=== PATIENT | male | born 1955 | race Caucasian/White ===

== ENCOUNTER 2020-12-23 10:44 | Emergency (ER) | payer BC, MEDICARE, SELFPAY ==
[2020-12-23 10:54] VITALS: BP 146/84; PULSE 81; RESP 18; TEMP 36.3; O2SAT 95
--- NOTE | 2020-12-23 11:05 | ED.SKABFB ---
HPI - Skin/Abscess/Foreign Bdy General Chief complaint: Skin/Abscess/Foreign Body Stated complaint: rt hand ring finger pos infection Time Seen by Provider: 12/23/20 11:05 Source: patient and RN notes reviewed Mode of arrival: ambulatory Limitations: no limitations History of Present Illness HPI narrative: 65-year-old male presents to the [facility] with complaints of pain swelling to the right ring finger around the nailbed. Patient states a week ago he cut his nails and since redness inflammation and drainage has been noted. Related Data Home Medications Medication Instructions Recorded Confirmed lisinopril 10 mg PO DAILY 12/23/20 12/23/20 metoprolol tartrate 25 mg PO DAILY 12/23/20 12/23/20 prednisone 7 mg PO DAILY 12/23/20 12/23/20 rosuvastatin 40 mg PO DAILY 12/23/20 12/23/20 Allergies Allergy/AdvReac Type Severity Reaction Status Date / Time No Known Allergies Allergy Verified 12/23/20 11:04 Review of Systems Review of Systems: All systems reviewed & are unremarkable except as noted in HPI and below Constitutional: Constitutional: Reports no additional constitutional complaints Eyes: Eyes: Reports no additional eye complaints ENT: Reports system reviewed and no additional complaints, except as documented Cardiovascular: Cardiovascular: Reports no additional cardiovascular complaints Respiratory: Respiratory: Reports no additional respiratory complaints Gastrointestinal: Gastrointestinal: Reports no additional gastrointestinal complaints Musculoskeletal: Musculoskeletal: Reports no additional musculoskeletal complaints Integumentary/Breasts: Skin/Breast: Reports as per HPI Comments: Right ring finger redness swelling post 6 days trimming nails Neurologic: Reports system reviewed and no additional complaints, except as documented Psychiatric: Psychiatric: Reports no additional psychiatric complaints Allergic/Immunologic: Allergic/Immunologic: Reports no additional allergic/immunologic complaints [facility] Past Medical History Medical History (Updated 12/23/20 @ 18:28 by Gisella Hogan) High cholesterol Hypertension Social History Social History (Updated 12/23/20 @ 18:28 by Gisella Hogan) Living arrangements: with family Gender identity (if verbalized by the patient): Male Comments At the time of my signature, I reviewed and agree with the nursing past medical, surgical, social, and family history. There is no relevant family history pertinent to the patient complaint. Exam Const: General: healthy appearing, no acute distress and alert Nutritional Appearance: well nourished Orientation/consciousness: patient oriented x3 Limitations: no limitations HENMT: Head: normal to inspection Eyes: Conjunctivae: conjunctivae normal Pupils: Equal, round and reactive pupils present Neck: Neck: normal visual inspection, no lymphadenopathy and no meningeal signs Chest: Chest palpation & inspection: normal inspection of the chest Resp: Effort & Inspection: normal respiratory effort and no use of accessory muscles Auscultation: clear to auscultation bilaterally, no crackles, no rales, no rhonchi and no wheezes Cardio: Rate: regular rate Rhythm: regular rhythm Back/Spine/Pelvis: Back: no CVA tenderness Skin: General skin exam: normal color Rashes: no rashes Wounds: wounds noted (Paronychia right ring finger) Neuro: General: patient oriented x3, moves all extremities, no meningeal signs and no focal motor deficits Speech: normal speech Gait exam (Neuro): Normal gait present Extrem: General: normal to inspection Psych: Appearance: grossly normal and well kempt Mental Status: mental status grossly normal Affect: normal affect Attitude: cooperative Thought content: Yes Normal thought content present Course Course Emergency Course: Discharge instructions reviewed with patient, as well as provided in writing per nursing staff. The instructions also include specific and strict return/
[2020-12-23] MEDS: LIDOCAINE HCL 1% LOCAL INJ 20 ML VIAL 5 ML INFILTRATE (11:33)
== END 2020-12-23 11:48 | disposition home or self-care (01) ==
PROVIDERS: Emergency Provider Nurse Practitioner; PCP Family Medicine Adolescent Medicine
DX: L03.011 Cellulitis of right finger (principal); E78.00 Pure hypercholesterolemia, unspecified; I10 Essential (primary) hypertension
CPT/HCPCS: 10060; 87070; 87075; 87076; 87147; 87185; 87205; 99213; G0463

== ENCOUNTER 2021-01-29 09:36 | Outpatient (CLI) | payer BC, MEDICARE, SELFPAY ==
--- NOTE | ~2021-01-29 | XR_ITS ---
EXAMINATION: XR lumbar spine 2-3V EXAM DATE: 01/29/2021 10:15 INDICATION: Polymyalgia rheumatica. TECHNIQUE: Lumber spine frontal, lateral, lateral L5-S1 projections for interpretation. There is no prior study for comparison. FINDINGS: There is moderate disc disease L4-5 and L5-S1, mild to moderate disc disease at the other lumbar levels. There is moderate lower lumbar facet arthropathy. No endplate erosive change. The sacr oiliac joints are symmetric and unremarkable. Mild bilateral hip primary osteoarthritis. Paraspinal s oft tissue is unremarkable. IMPRESSION: Moderate lower lumbar spondylosis. Reviewed, dictated and finalized at location A. L BEARING TURNER
--- NOTE | ~2021-01-29 | XR_ITS ---
EXAMINATION: XR hip BI 2V w AP pelvis DATE: 01/29/2021 10:15 INDICATION: Polymyalgia rheumatica. Pelvic pain. TECHNIQUE: An anteroposterior view of the pelvis and 2 views of each hip were obtained. COMPARISON: None. FINDINGS: Bone alignment is normal. No fracture. There is severe lumbar spondylosis. There is mild os teoarthritis of the hips. IMPRESSION: 1. Mild osteoarthritis of the hips. 2. Severe lumbar spondylosis. Reviewed, dictated and finalized at location B. STION OPERATOR
--- NOTE | ~2021-01-29 | XR_ITS ---
EXAMINATION: XR sacroiliac joints min 3V DATE: 01/29/2021 10:15 INDICATION: Polymyalgia rheumatica. TECHNIQUE: 3 views of the sacroiliac joints were obtained. COMPARISON: None. FINDINGS: Bone alignment is normal. No fracture. There is severe lumbar spondylosis. The sacroiliac j oints are normal. IMPRESSION: 1. Normal sacroiliac joints. 2. Severe lumbar spondylosis. Reviewed, dictated and finalized at location B. TER PROFESSIONAL
== END 2021-01-29 09:37 | disposition home or self-care (01) ==
LOC: ANHIMG 09:45
PROVIDERS: PCP Family Medicine Adolescent Medicine
DX: M35.3 Polymyalgia rheumatica (principal); M25.50 Pain in unspecified joint; E55.9 Vitamin D deficiency, unspecified; M81.0 Age-related osteoporosis without current pathological fracture; M16.0 Bilateral primary osteoarthritis of hip; M47.896 Other spondylosis, lumbar region
CPT/HCPCS: 72100; 72202; 73521

== ENCOUNTER 2021-08-03 11:31 | Outpatient (CLI) | payer MEDICARE, SELFPAY ==
--- NOTE | ~2021-08-03 | DEXA_ITS ---
Bone Density Report Name: DANIELLE EID Age: 65 Sex: Male Ethnicity: White Date of : 1955 Indication: osteopenia; history of glucocorticoids; Referring Provider: ALIRIO NAYAK Study: Bone densitometry was performed. Exam Date: August 03, 2021 Accession number: [id number] Bone Density: Region BMD T-score Z-score Classification AP Spine(L1-L4) 0.891 -1.8 -1.0 Osteopenia Femoral Neck (Left) 0.906 -0.2 0.9 Normal Total Hip (Left) 0.953 -0.5 0.0 Normal Femoral Neck (Right) 0.903 -0.2 0.9 Normal Total Hip (Right) 1.034 0.0 0.5 Normal Total Hip Mean 0.993 -0.3 0.3 Normal World Health Organization criteria for BMD impression classify patients as: Normal (T-score at or above -1.0), Osteopenia (T-score between -1.0 and -2.5), or Osteoporosis (T-score at or below -2.5). 10-year Fracture Risk(1): Major Osteoporotic Fracture 5.7% Hip Fracture 0.6% Reported Risk Factors: [place] (), Neck BMD=0.906, BMI=38.4, smoking, glucocorticoids Input outside FRAX(R) limits. Adjusted to:Ugnitx=560 kg (1) FRAX(R) Version 3.08. Fracture probability calculated for an untreated patient. Fracture probability may be lower if the patient has received treatment. Previous Exams: Region Exam Age BMD T-score BMD Change BMD Change Date g/cm2 vs Baseline vs Previous AP Spine (L1-L4) 08/03/2021 65 0.891 -1.8 -0.071 (-7.4%) -0.071 (-7.4%) 01/19/2018 62 0.962 -1.2 Total Hip(Left) 08/03/2021 65 0.953 -0.5 -0.062 (-6.1%) -0.062 (-6.1%) 01/19/2018 62 1.015 -0.1 Total Hip(Right) 08/03/2021 65 1.034 0.0 0.047 (4.8%)* 0.047 (4.8%)* 01/19/2018 62 0.987 -0.3 *Denotes significance at 95% confidence level, LSC for AP Spine = 0.022 g/cm2, LSC for Total Hip = 0.027 g/cm2 # Denotes dissimilar scan types or analysis methods Clinical Information Provided by Patient: Smokes Has taken Glucocorticoids Has used the following medications: Vitamin D Patient maximum height was 72 No regular weight bearing exercise Drinks caffeinated beverages Impression: The patient has low bone mass, based on the Total Spine T-score. The patient has an estimated ten-year risk of hip fracture of 0.6% and an estimated ten-year risk of major fracture of 5.7%, based on the WHO FRAX algorithm. The patient has risk factors, including: smoking, history of glucocorticoid therapy. The BMD for the Total Hip(Left) decreased, changing by -6.1% since the last DXA exa
== END 2021-08-03 11:32 | disposition home or self-care (01) ==
LOC: ANHIMG 11:32
PROVIDERS: PCP Family Medicine Adolescent Medicine
DX: M35.3 Polymyalgia rheumatica (principal); M25.50 Pain in unspecified joint; E55.9 Vitamin D deficiency, unspecified; M81.0 Age-related osteoporosis without current pathological fracture; M85.88 Other specified disorders of bone density and structure, other site
CPT/HCPCS: 77080

== ENCOUNTER 2021-11-07 08:56 | Outpatient (CLI) | payer MEDICARE, SELFPAY ==
--- NOTE | ~2021-11-07 | US_ITS ---
EXAMINATION: US aorta [facility] scrn DATE: 11/07/2021 09:41 INDICATION: Abdominal aortic aneurysm screening. TECHNIQUE: Grayscale, color Doppler, and pulsed Doppler images of the aorta and common iliac arteries were obtained. COMPARISON: None. FINDINGS: The aorta is normal in caliber. The right common iliac artery is obscured by bowel gas. The left comm on iliac artery is obscured by bowel gas. IMPRESSION: 1. No abdominal aortic aneurysm. Reviewed, dictated and finalized at location A.
== END 2021-11-07 08:57 | disposition home or self-care (01) ==
PROVIDERS: PCP Family Medicine Adolescent Medicine; Visit Provider Internal Medicine Cardiovascular Disease
DX: Z72.0 Tobacco use (principal)
CPT/HCPCS: 76706

== ENCOUNTER 2021-12-28 08:14 | Emergency (ER) | payer MEDICARE, SELFPAY ==
[2021-12-28] VITALS (11 sets, daily range): BP systolic 108–117; BP diastolic 57–70; PULSE 74–90; RESP 18–25; TEMP 36.6; O2SAT 92–99
--- NOTE | ~2021-12-28 | XR_ITS ---
EXAMINATION: XR chest 2V DATE: 12/28/2021 09:05 INDICATION: Cardiac arrest TECHNIQUE: PA and lateral views of the chest are obtained. COMPARISON: 03/12/2016 FINDINGS: The lungs are free of acute opacities. No pleural effusion or pneumothorax. The cardiomedia stinal silhouette is normal. There is mild thoracic spondylosis. IMPRESSION: 1. No acute cardiopulmonary abnormality. Reviewed, dictated and finalized at location A.
--- NOTE | 2021-12-28 08:32 | ECG_ITS ---
Measurements Intervals [place] Rate: 81 P: 8 DC: 146 QRS: -50 QRSD: 106 T: 33 QT: 342 QTc: 399 Interpretive Statements SINUS RHYTHM LEFT ANTERIOR FASCICULAR BLOCK [QRS AXIS <= -45, QR IN I, RS IN II] NO PREVIOUS ECG AVAILABLE FOR COMPARISON Electronically Signed On 12-28-2021 9:04:22 CDT by Amanda Ballard M.D.
[2021-12-28 08:59] LABS: Basophils Absolute Auto 0.1 K/mm3 (0.0-0.1); Basophils Percent Auto 0.4 % (0.2-1.2); Eosinophils Absolute Auto 0.2 K/mm3 (0-0.3); Eosinophils Percent Auto 1.6 % (0-4.4); Hematocrit 44.2 % (42.0-52.0); Hemoglobin 14.7 g/dL (14.0-18.0); Immature Granulocyte Absolute 0.07 K/mm3 (0.00-0.031); Immature Granulocyte Percent A 0.5 % (0-0.5); Lymphocytes Absolute Auto 2.69 K/mm3 (0.9-3.2); Lymphocytes Percent Auto 20.1 % (18.3-44.2); Mean Corpuscular HGB Conc 33.3 g/dl (32-36); Mean Corpuscular Hemoglobin 31.6 pg (26-34); Mean Corpuscular Volume 95.1 fl (80-100); Mean Platelet Volume 10.2 fl (7.4-10.4); Monocytes Absolute Auto 1.1 K/mm3 (0.1-0.6); Monocytes Percent Auto 8.1 % (2.6-8.5); Neutrophils Absolute Auto 9.3 K/mm3 (1.3-6.7); Neutrophils Percent Auto 69.3 % (45.5-73.1); Platelet Count Result 196 k/mm3 (150-375); Red Blood Count 4.65 M/mm3 (4.6-6.20); Red Cell Distribution Width 13.5 % (11.5-14.5); White Blood Count 13.4 K/mm3 (4.5-10.0)
--- NOTE | 2021-12-28 09:00 | ED.GENADULT ---
HPI - General Adult General Chief complaint: Unspecified Stated complaint: I had a Heart Attack Yesterday Time Seen by Provider: 12/28/21 08:36 History of Present Illness HPI narrative: Patient is a 66-year-old male with a history of CAD with MO status post stenting (2016), hypertension, hyperlipidemia, polymyalgia rheumatica, here for evaluation of an episode of chest discomfort yesterday. Patient states that he was seated eating dinner when he noticed that he became diaphoretic, cold, and nauseated. He reports similar symptoms with his previous MO, so he took a nitro with slight improvement of his symptoms. Patient began to trip to the ER and he then developed a tightness in the center of his chest that lasted for about an hour and a half. Patient left the ER yesterday due to long wait times; presents today due to continued fatigue and feeling off . He denies any shortness of breath, chest pain today. Related Data Home Medications Medication Instructions Recorded Confirmed metoprolol tartrate 25 mg tablet 25 mg PO DAILY 12/23/20 11/13/21 prednisone 1 mg tablet 7 mg PO DAILY 12/23/20 11/13/21 rosuvastatin 40 mg tablet 40 mg PO DAILY 12/23/20 11/13/21 furosemide 20 mg tablet 10 mg PO QAM 11/13/21 11/13/21 lisinopril 10 mg tablet 20 mg PO DAILY 11/13/21 11/13/21 Allergies Allergy/AdvReac Type Severity Reaction Status Date / Time No Known Allergies Allergy Verified 11/13/21 08:32 Review of Systems Review of Systems: Gen.: Reports diaphoresis. Denies fevers or chills Eyes: Denies eye pain or visual change ENT: Denies congestion Respiratory: Denies shortness of breath or cough CV: Reports chest pain, resolved. Denies palpitations GI: Reports nausea. Denies abdominal pain nausea, emesis or diarrhea denies burning, urgency, frequency or hematuria Musculoskeletal: Denies back pain or muscle pain Neuro: Denies numbness, tingling, weakness or focal weakness Skin: Denies rash Except as documented, all other systems reviewed and negative [facility] Past Medical History Medical History High cholesterol Hx of myocardial infarction Hypertension Surgical History Surgical History Hx of laminectomy L4 AND L5 Family History Family History Mother Alzheimers disease Arrhythmia Father Acute myocardial infarction CAD (coronary artery disease) Sibling , Heart attack at 53 No problems noted. Social History Social History (Updated 11/13/21 @ 08:38 by Naomie Parsons MA) Smoking status: Current some day smoker Tobacco type: cigarettes Second hand tobacco smoke exposure: Yes Alcohol intake: never Substance use: never Substance use type: does not use Gender identity (if verbalized by the patient): Male Spiritual care concerns: No Agree to blood products: Yes Exam Narrative: APPEARANCE: Obese. Well appearing, no pain in distress, well-nourished. Head: Normocephalic and atraumatic. EYES: PERRLA/EOMI, conjunctivae clear NOSE: No nasal drainage EARS: External ear normal in appearance THROAT: Oropharynx is clear. Mucous membranes are moist. NECK: Supple. No adenopathy, no masses. RESPIRATORY: Airway patent, respirations nonlabored. Clear to auscultation bilaterally, no rales, rhonchi, wheezing. CARDIOVASCULAR: Regular rate and rhythm without murmurs, rubs, or gallops. ABDOMINAL: Normoactive bowel sounds. Soft, nontender, nondistended. No rebound tenderness or guarding. MUSCULOSKELETAL: 1+ pitting edema to bilateral lower extremities. Extremities are warm and well-perfused. Moves all extremities well. NEURO: Normal speech. No focal neurologic deficits. SKIN: Skin is warm and dry. No rashes. PSYCHIATRIC: Normal affect/mood. Course Consultations Consultation #1: Spoke with
[2021-12-28 09:09] LABS: Alanine Aminotransferase 26 U/L (6-50); Albumin Level 4.2 g/dL (3.5-5.1); Alkaline Phosphatase 65 U/L (38-126); Anion Gap 12 mmol/L (8-16); Aspartate Amino Transferase 29 U/L (17-59); Bilirubin,Total 0.4 mg/dL (0.2-1.3); Blood Urea Nitrogen 29 mg/dL (9-20); Calcium 8.6 mg/dL (8.4-10.2); Carbon Dioxide 30 mmol/L (22-30); Chloride 97 mmol/L (98-107); Estimated CRCL calculation 109 ml/min; Estimated Glomerular Filt Rate > 60; Glucose 135 mg/dL (65-110); Lipase 117 U/L (23-300); Potassium 3.9 mmol/L (3.4-5.0); Sodium 139 mmol/L (137-145)
[2021-12-28 09:10] LABS: INR 1.1; Prothrombin Time 13.6 Seconds (11.1-14.7)
[2021-12-28 09:11] LABS: Partial Thromboplastin Time 25.9 SECONDS (22.3-36.8)
[2021-12-28 09:20] LABS: Troponin I < 0.012 ng/mL (0.000-0.034)
[2021-12-28] MEDS: ASPIRIN 81 MG CHEWABLE TABLET 324 MG PO (09:48)
== END 2021-12-28 10:28 | disposition home or self-care (01) ==
PROVIDERS: Emergency Provider Emergency Medicine; PCP Family Medicine Adolescent Medicine
DX: I25.10 Atherosclerotic heart disease of native coronary artery without angina pectoris (principal); I25.2 Old myocardial infarction; E78.5 Hyperlipidemia, unspecified; I10 Essential (primary) hypertension; M35.3 Polymyalgia rheumatica; Z95.5 Presence of coronary angioplasty implant and graft; F17.210 Nicotine dependence, cigarettes, uncomplicated; I44.4 Left anterior fascicular block
CPT/HCPCS: 36415; 71046; 80053; 83690; 84484; 85025; 85610; 85730; 93005; 99284; A9270

== ENCOUNTER 2022-01-23 01:09 | Day surgery (SDC) | payer MEDICARE, SELFPAY ==
[2022-01-22 10:45] VITALS: BMI 38.7
[2022-01-23] VITALS (10 sets, daily range): BP systolic 125–153; BP diastolic 72–85; PULSE 78–90; RESP 16–28; TEMP 35.7; O2SAT 92–95; BMI 37.9
[2022-01-23 09:16] LABS: Basophils Absolute Auto 0.1 K/mm3 (0.0-0.1); Basophils Percent Auto 0.5 % (0.2-1.2); Eosinophils Absolute Auto 0.3 K/mm3 (0-0.3); Eosinophils Percent Auto 1.9 % (0-4.4); Hematocrit 46.7 % (42.0-52.0); Hemoglobin 15.4 g/dL (14.0-18.0); Immature Granulocyte Absolute 0.12 K/mm3 (0.00-0.031); Immature Granulocyte Percent A 0.8 % (0-0.5); Lymphocytes Absolute Auto 3.17 K/mm3 (0.9-3.2); Lymphocytes Percent Auto 20.1 % (18.3-44.2); Mean Corpuscular Hemoglobin 31.2 pg (26-34); Mean Corpuscular Volume 94.7 fl (80-100); Mean Platelet Volume 9.8 fl (7.4-10.4); Monocytes Absolute Auto 1.2 K/mm3 (0.1-0.6); Monocytes Percent Auto 7.5 % (2.6-8.5); Neutrophils Absolute Auto 10.9 K/mm3 (1.3-6.7); Neutrophils Percent Auto 69.2 % (45.5-73.1); Platelet Count Result 215 k/mm3 (150-375); Red Blood Count 4.93 M/mm3 (4.6-6.20); Red Cell Distribution Width 13.1 % (11.5-14.5); White Blood Count 15.8 K/mm3 (4.5-10.0)
[2022-01-23 09:25] LABS: Anion Gap 12 mmol/L (8-16); Blood Urea Nitrogen 23 mg/dL (9-20); Calcium 9.1 mg/dL (8.4-10.2); Carbon Dioxide 28 mmol/L (22-30); Chloride 96 mmol/L (98-107); Estimated CRCL calculation 109 ml/min; Estimated Glomerular Filt Rate > 60; Glucose 137 mg/dL (65-110); Potassium 3.9 mmol/L (3.4-5.0); Sodium 136 mmol/L (137-145)
--- NOTE | 2022-01-23 09:25 | PM.IMHP ---
H&P: HPI History of Present Illness Date/Time: 01/23/22 09:25 Chief Complaint: Patient presents for cardiac cath for abnormal stress test Narrative: Patient is a 66-year-old male with a known history of CAD s/p multiple stents in 2017, polymyalgia rheumatica on chronic prednisone therapy who is referred for cardiac cath for abnormal stress test. He had PCI with KRISTYN of 3.5mm x 38mm to the RCA in March 13, 2016. He then had PCI with stent placement to the LCX with a 3.0mm x 32mm KRISTYN and then KRISTYN to the LAD with a 3.0mm x 23mm and a 3.0mm x 12mm on March 27, 2016. Patient was recently seen in the ED for chest pain. Troponins were negative without ischemic EKG changes. He was discharged from ED. Patient had an outpatient MPI on 01/09/2022 which showed inferior/inferoseptal infarction with ischemia. LVEF 74%. Negative EKG portion of stress test. Very poor exercise capacity for age with limiting dyspnea. Review of Systems Review of Systems: 12-point ROS obtained. Negative, unless stated in HPI. [facility] Past Medical History Medical History High cholesterol Hx of myocardial infarction Hypertension Surgical History Surgical History Hx of laminectomy L4 AND L5 Family History Family History Mother Alzheimers disease Arrhythmia Father Acute myocardial infarction CAD (coronary artery disease) Sibling , Heart attack at 53 No problems noted. Social History Social History Smoking packs per day: 0.5 Smoking cigarettes per day: 10.0 Years smoked: 50 Smoking pack-years: 25.00 Smoking status: Current every day smoker Tobacco type: cigarettes Second hand tobacco smoke exposure: Yes Alcohol intake: former Substance use: current Substance use type: does not use Living arrangements: with family Gender identity (if verbalized by the patient): Male Spiritual care concerns: No Agree to blood products: Yes Meds Home Medications and Allergies Home Medications Medication Instructions Recorded Confirmed Type metoprolol tartrate 25 mg tablet 25 mg PO BID 12/23/20 01/22/22 History prednisone 1 mg tablet 8 mg PO DAILY 12/23/20 01/22/22 History rosuvastatin 40 mg tablet 40 mg PO DAILY 12/23/20 01/22/22 History furosemide 20 mg tablet 10 mg PO QAM PRN Edema 11/13/21 01/22/22 History lisinopril 10 mg tablet 20 mg PO DAILY 11/13/21 01/22/22 History aspirin 81 mg tablet 81 mg PO DAILY 01/22/22 01/22/22 History hydrochlorothiazide 25 mg tablet 25 mg PO DAILY 01/22/22 01/22/22 History Allergies Allergy/AdvReac Type Severity Reaction Status Date / Time No Known Allergies Allergy Verified 01/23/22 08:29 Vital Signs Vital Signs - 24 hr 01/23/22 09:04 Temperature 35.7 C L Pulse Rate 88 Respiratory Rate 22 H Blood Pressure 132/82 Pulse Oximetry 94 Oxygen Delivery Room Air Exam Const: General: comfortable and no acute distress HENMT: Mouth: Yes moist mucous membranes Eyes: General: appearance normal, both eyes and all related structures Sclera: sclerae normal Neck: Neck: supple and no JVD Resp: Effort & Inspection: normal respiratory effort Auscultation: clear to auscultation bilaterally Cardio: Rate: regular rate Rhythm: regular rhythm Heart sounds: no murmurs GI: GI Palp: Yes Soft to palpation and No Tenderness to palpation present (GI) Skin: General skin exam: normal color Neuro: Speech: normal speech Extrem: General: no edema Psych: Mental Status: mental status grossly normal Affect: normal affect H&P: Results Labs Labs: Short CBC 01/23/22 Range/Units 09:00 WBC 15.8 H (4.5-10.0) K/mm3 Hgb 15.4 (14.0-18.0) g/dL Hct 46.7 (42.0-52.0) % Plt Count 215 (150-375) k/mm3 Assessment and Plan Assessmen
--- NOTE | 2022-01-23 09:32 | WPDMODSED ---
Moderate Sedation Note-Pt Data Patient Data Diagnosis: Abnormal stress test Present Complaint: Abnormal stress test Procedure to be performed/Plan: Coronary angiography, C Allergies Allergy/AdvReac Type Severity Reaction Status Date / Time No Known Allergies Allergy Verified 01/23/22 08:29 Home Medications Medication Instructions Recorded Confirmed Type metoprolol tartrate 25 mg tablet 25 mg PO BID 12/23/20 01/22/22 History prednisone 1 mg tablet 8 mg PO DAILY 12/23/20 01/22/22 History rosuvastatin 40 mg tablet 40 mg PO DAILY 12/23/20 01/22/22 History furosemide 20 mg tablet 10 mg PO QAM PRN Edema 11/13/21 01/22/22 History lisinopril 10 mg tablet 20 mg PO DAILY 11/13/21 01/22/22 History aspirin 81 mg tablet 81 mg PO DAILY 01/22/22 01/22/22 History hydrochlorothiazide 25 mg tablet 25 mg PO DAILY 01/22/22 01/22/22 History Current Medications: Active Medications Sodium Chloride (Normal Saline Iv) 500 mls @ 100 mls/hr IV CONT .Q5H MICKY Sedation/Anesthesia: No previous sedation/anesthesia problems (including family history). [facility] Past Medical History Medical History High cholesterol Hx of myocardial infarction Hypertension Surgical History Surgical History Hx of laminectomy L4 AND L5 Family History Family History Mother Alzheimers disease Arrhythmia Father Acute myocardial infarction CAD (coronary artery disease) Sibling , Heart attack at 53 No problems noted. Social History Social History Smoking packs per day: 0.5 Smoking cigarettes per day: 10.0 Years smoked: 50 Smoking pack-years: 25.00 Smoking status: Current every day smoker Tobacco type: cigarettes Second hand tobacco smoke exposure: Yes Alcohol intake: former Substance use: current Substance use type: does not use Living arrangements: with family Gender identity (if verbalized by the patient): Male Spiritual care concerns: No Agree to blood products: Yes Mod Sed Physical Exam Physical Exam Pre Procedural Exam: Normal: Appearance, Lungs, Heart Rate, Heart Rhythm, Neuro Exam, Abdomen, Extremities and Skin Hours since solid foods: 12 Hours since liquid intake: 8 Mallampati Classification: class III Internal Medicine - PN: Obj Da Vital Signs Vital Signs: Vital Signs - 24 hr 01/23/22 09:04 Temperature 35.7 C L Pulse Rate 88 Respiratory Rate 22 H Blood Pressure 132/82 Pulse Oximetry 94 Oxygen Delivery Room Air Meds/Results Medications: Active Medications Generic Name Dose Route Start Last Admin Trade Name Alondra PRN Reason Stop Dose Admin Sodium Chloride 500 mls @ 100 mls/hr 01/23/22 08:30 Normal Saline Iv IV CONT .Q5H MICKY Labs CBC & Chem 7: 01/23/22 09:00 01/23/22 09:00 Labs: Laboratory Results - last 24 hr 01/23/22 01/23/22 09:00 09:00 WBC 15.8 H RBC 4.93 Hgb 15.4 Hct 46.7 MCV 94.7 MCH 31.2 MCHC 33.0 RDW 13.1 Plt Count 215 MPV 9.8 Immature Gran % (Auto) 0.8 H Neut % (Auto) 69.2 Lymph % (Auto) 20.1 [place] % (Auto) 7.5 Eos % (Auto) 1.9 Baso % (Auto) 0.5 Lymph # (Auto) 3.17 [place] # (Auto) 1.2 H Eos # (Auto) 0.3 Baso # (Auto) 0.1 Abs Immat Gran (auto) 0.12 H Absolute Neuts (auto) 10.9 H Absolute Nucleated RBC 0.0 Nucleated RBC % 0.0 Sodium 136 L Potassium 3.9 Chloride 96 L Carbon Dioxide 28 Anion Gap 12 BUN 23 H Creatinine 0.80 Estim Creat Clear Calc 109 Estimated GFR > 60 Glucose 137 H Calcium 9.1 ASA Classification/Sedation ASA Classification/Sedation ASA Class: III Emergent: No Risks: Risks, benefits and alternatives explained and patient/family accepted plan for sedation. Patient re-vandana
--- NOTE | 2022-01-23 10:51 | WPDCARDPROC ---
Cardiac Cath Procedure Note Date of procedure:: 01/23/22 Performing physician:: CATHETERIZATION LABORATORY REPORT Procedure Date: 01/23/2022 Customs Patrol Officer: Elliot Hunt M.D., [facility]? Referring Physician: Dr. Reis ? Anesthesia: Versed and Fentanyl were ordered and given in my presence at 10:13, procedure ended at 10:45. Supervision of nurse monitored moderate sedation with Versed and Fentanyl was provided for 33 minutes. Total of Versed 2mg and Fentanyl 50mcg was administered by the Heel Blacker RN. Pre-op Diagnosis: Abnormal stress test in the setting of known CAD s/p prior PCI Post-op Diagnosis: Non-obstructive coronary artery disease with patent LAD, OM, and RCA stents Left ventricular end-diastolic pressure of 22mmHg Procedure(s): Left heart catheterization with coronary angiography Access Site: Right radial artery Brief History and Clinical Indications: Patient is a 66-year-old male with a known history of CAD s/p prior RCA, LAD, and LCX stents in 2017 who is referred for [facility] for abnormal stress test in the setting of chest pain. All risks, benefits and alternatives to left heart catheterization with or without percutaneous coronary intervention was discussed at length with the patient. Risk of complications including but not limited to bleeding, infection, arrhythmia, stroke, worsening kidney function, blood loss, groin hematoma, limb loss, emergency coronary artery bypass grafting, and even were discussed with the patient and all questions were answered. The patient understood and wished to proceed. Time out called, patient name, date of , medical record number, allergies, procedure performed, identify Customs Patrol Officer, patient and staff member concurred with accurate data, procedure carried on. Findings: LEFT HEART CATHETERIZATION FINDINGS: 1. Left main: The left main coronary artery is widely patent without any significant obstructive disease. The left main is short. 2. Left anterior descending: The proximal LAD has mild luminal irregularities. Patent stent in the mid LAD. The distal LAD has mild diffuse disease. No significant obstructive angiographic disease in the LAD Diagonal branches have mild diffuse disease without any significant obstructive angiographic disease. 3. Left circumflex: The left circumflex artery has mild diffuse disease without any significant obstructive angiographic disease. There is a large caliber OM vessel with a patent stent in the proximal-mid segments. Remainder of the OM branch has mild luminal irregularities. 4. Right coronary artery: The RCA is the dominant vessel. Patent stent seen in the proximal-mid segment. The distal RCA has mild diffuse disease without any significant obstructive angiographic disease. RPDA and RPLV branches are without any significant disease. 5. Left ventricle: A. End-diastolic pressure 22mmHg. B. LV gram deferred. C. No significant gradient across aortic valve on catheter pullback. Description of Procedure: Informed consent signed and placed in the chart. Patient transferred to lab instructor room. Prepped and draped in usual sterile fashion. 2% lidocaine injected subcutaneously in right wrist area. 22-gauge venipuncture catheter used to access the right radial artery with the Seldinger technique. 6-FR slender sheath placed in right radial artery. Nitroglycerine and Cardene was given intraarterial through the sheath. Versacore wire advanced under fluoroscopy 5F Tig 4 diagnostic catheter engaged Left Main Coronary Artery. 5F Tig 4 diagnostic catheter engaged Right Coronary Artery Additional left coronary angios were obtained with FL 4 diagnostic catheter. Multiple orthogonal angiogram obtained and reviewed 5F Tig 4 diagnostic catheter crossed aortic valve to obtain LVEDP, LV angiogram deferred. Hemostasis was achieved by application of TR band. ? Assessment: Non-obstructive coronary artery disease with patent LAD, OM, and RCA stents Left ventr
== END 2022-01-23 13:56 | disposition home or self-care (01) ==
PROVIDERS: PCP Family Medicine Adolescent Medicine; Visit Provider Internal Medicine
PROC: 4A023N7 Measurement of Cardiac Sampling and Pressure, Left Heart, Percutaneous Approach (ICD-10-PCS; CPT 93452; principal; 2022-01-23 10:00)
DX: I25.10 Atherosclerotic heart disease of native coronary artery without angina pectoris (principal); R94.39 Abnormal result of other cardiovascular function study; R07.9 Chest pain, unspecified; Z95.5 Presence of coronary angioplasty implant and graft; M35.3 Polymyalgia rheumatica; E78.00 Pure hypercholesterolemia, unspecified; I25.2 Old myocardial infarction; I10 Essential (primary) hypertension; F17.210 Nicotine dependence, cigarettes, uncomplicated; Z79.82 Long term (current) use of aspirin
CPT/HCPCS: 36415; 80048; 85025; 93458; A9270; C1769; C1887; C1894; J1644; J2250; J3010; J7040

== ENCOUNTER 2022-07-18 08:18 | Outpatient (CLI) | payer MEDICARE, SELFPAY ==
--- NOTE | 2022-07-18 12:52 | P.PCNPFT_ITS ---
PFT Procedure Performed PFT Procedure Performed Spirometry with Pre/Post Bronchodilator Plethysmography (Lung Vol) Diffusing Cap (DLCO) Flow Vol Loop PFT Interpretation This is a pulmonary function test with pre and post-bronchodilator spirometry, plethysmography and diffusing capacity. The test was performed and results interpreted in accordance with the 2019 and 2005 ATS/ERS Task Force guidelines respectively using the Global Lung Function Initiative-2012 reference equations. Patient demonstrated good effort and cooperation. Reproducibility criteria were met. The quality of the pre bronchodilator spirometry maneuver was Grade A and post bronchodilator spirometry maneuver was Grade A. Findings: Spirometry: There is decreased maximal expiratory airflow at all lung volumes with a concave expiratory flow tracing. The contour the inspiratory flow tracing is normal. The pre bronchodilator FVC is 2.65 L, 56% predicted. The pre bronchodilator FEV1 is 1.73 L, 48% predicted. The pre bronchodilator FEV1: FVC ratio is 65%. The post bronchodilator FVC is 2.94 L, representing a 11% increase. The post bronchodilator FEV1 is 1.99 L, representing a 15% increase. The post bronchodilator FEV1: FVC ratio 68%. Plethysmography: The total lung capacity is 5.46 L, 73% predicted. The functio nal residual capacity is 3.08 L, 78% predicted. the residual volume is 2.78 L, 112% predicted. Diffusing capacity: The diffusing capacity unadjusted for hemoglobin and carboxyhemoglobin is 15.2, 55% predicted. The diffusing capacity adjusted for alveolar volume is 3.60, 91% predicted. Impression: There is a combined obstructive and restrictive ventilatory abnormality. There are no guidelines to assign the severity of obstruction and restriction with a combined abnormality. In my opinion, given the moderately concave expiratory flow tracing and decreased FEV1: FVC ratio and mild restr ictive abnormality I would state there is a moderate obstructive abnormality and a mild restrictive abnormality resulting in a severely decreased FEV1. There is significant improvement after inhaling a single dose of albuterol. The diffusing capacity unadjusted for hemoglobin and carboxyhemoglobin is moderately decreased and normalizes when adjusted for alveolar volume. There are no prior studies for comparison
== END 2022-07-18 08:19 | disposition home or self-care (01) ==
PROVIDERS: PCP Family Medicine Adolescent Medicine; Visit Provider Family Medicine Adolescent Medicine
DX: R06.02 Shortness of breath (principal); R94.2 Abnormal results of pulmonary function studies
CPT/HCPCS: 94060; 94726; 94729

== ENCOUNTER 2022-09-28 22:01 | Emergency (ER) | payer MEDICARE, SELFPAY ==
--- NOTE | ~2022-09-28 | XR_ITS ---
XR chest 2V 09/28/2022 22:27 Indication: Shortness of breath with chest pain Procedure: 2 view chest Comparison: 2021 Findings: Chronic infiltrates of the lung bases. Borderline heart size. No edema, significant effusio n or pneumothorax. No acute osseous abnormality. Impression: 1: No significant change to chronic bibasilar linear infiltrates, most likely atelectasis/scarring. Reviewed, dictated and finalized at location A. Impression: 1: No significant change to chronic bibasilar linear infiltrates, most likely a telectasis/scarring.
--- NOTE | 2022-09-28 22:03 | ECG_ITS ---
Measurements Intervals [place] Rate: 113 P: 45 NV: 147 QRS: -53 QRSD: 100 T: 67 QT: 297 QTc: 408 Interpretive Statements SINUS TACHYCARDIA INCOMPLETE RIGHT BUNDLE BRANCH BLOCK LEFT ANTERIOR FASCICULAR BLOCK CONSIDER ANTERIOR INFARCT, AGE INDETERMINATE ABNORMAL ECG COMPARED TO ECG 12/28/2021 08:28:16 SINUS TACHYCARDIA NOW PRESENT Electronically Signed On 09-29-2022 6:48:16 CDT by Soto Meng D.O.
[2022-09-28 22:04] VITALS: BP 197/95; PULSE 121; RESP 20; TEMP 36.1; O2SAT 99
[2022-09-28 22:18] LABS: Basophils Absolute Auto 0.1 K/mm3 (0.0-0.1); Basophils Percent Auto 0.4 % (0.2-1.2); Eosinophils Absolute Auto 0.3 K/mm3 (0-0.3); Eosinophils Percent Auto 1.8 % (0-4.4); Hematocrit 44.2 % (42.0-52.0); Hemoglobin 14.3 g/dL (14.0-18.0); Immature Granulocyte Absolute 0.11 K/mm3 (0.00-0.031); Immature Granulocyte Percent A 0.6 % (0-0.5); Mean Corpuscular HGB Conc 32.4 g/dl (32-36); Mean Corpuscular Volume 95.7 fl (80-100); Mean Platelet Volume 10.1 fl (7.4-10.4); Monocytes Absolute Auto 1.6 K/mm3 (0.1-0.6); Neutrophils Absolute Auto 11.2 K/mm3 (1.3-6.7); Neutrophils Percent Auto 64.2 % (45.5-73.1); Platelet Count Result 222 k/mm3 (150-375); Red Blood Count 4.62 M/mm3 (4.6-6.20); Red Cell Distribution Width 13.2 % (11.5-14.5); White Blood Count 17.5 K/mm3 (4.5-10.0)
[2022-09-28 22:30] LABS: Alanine Aminotransferase 49 U/L (6-50); Albumin Level 4.4 g/dL (3.5-5.1); Alkaline Phosphatase 98 U/L (38-126); Anion Gap 7 mmol/L (8-16); Aspartate Amino Transferase 44 U/L (17-59); Bilirubin,Total 0.3 mg/dL (0.2-1.3); Blood Urea Nitrogen 23 mg/dL (9-20); Calcium 9.1 mg/dL (8.4-10.2); Carbon Dioxide 33 mmol/L (22-30); Chloride 97 mmol/L (98-107); Estimated CRCL calculation 93 ml/min; Estimated Glomerular Filt Rate > 60; Glucose 150 mg/dL (65-110); Potassium 3.9 mmol/L (3.4-5.0); Sodium 137 mmol/L (137-145)
[2022-09-28 23:35] VITALS: PULSE 90
[2022-09-28 23:36] VITALS: PULSE 91; RESP 20; O2SAT 93
[2022-09-28 23:47] VITALS: BP 138/77; PULSE 85; RESP 22; O2SAT 94
[2022-09-28 23:50] VITALS: PULSE 85; RESP 23; O2SAT 94
[2022-09-29] VITALS (10 sets, daily range): BP systolic 122–140; BP diastolic 80; PULSE 78–104; RESP 17–25; O2SAT 91–97
--- NOTE | 2022-09-29 00:56 | PC.NURSE ---
Patient ambulated without delivery assistant with marketing writer while he is on the pulse ox. Patient started on stretcher with oxygen saturations of 92% on room air and maintained oxygen saturations between 91-93% while walking around the nurses station. Patient did appear short of breath but was able to talk in full and complete sentences while ambulating with marketing writer. Patient ended his walk by sitting back on the ED stretcher in room 6 with oxygen saturations of 92% on room air.
--- NOTE | 2022-09-29 01:06 | ED.SOB ---
HPI - SOB/Dyspnea General Chief Complaint: Shortness of Breath/Dyspnea Stated Complaint: SOB; COPD/asthma Time Seen by Provider: 09/28/22 23:51 Source: patient and old records reviewed Mode of arrival: ambulatory Limitations: no limitations History of Present Illness HPI Narrative: Patient is a 66-year-old male, with past medical history of COPD/asthma, who presents to the ED with report of shortness of breath. Patient reports he was sitting at home tonight and began feeling lightheaded and dizzy. He checked his oxygen level with his home pulse oximeter and it was noted to be low at 88%. He states his HR was also elevated into the 120s at that time. Patient reports having chronic shortness of breath, but states it has seemed more pronounced over the last couple of days. He then prompted to the ED. Oxygen was 99% on room air upon arrival. Patient states pulmonology here and is scheduled to have a 6-minute walking test on Thursday to determine if he needs home oxygen therapy. He is also scheduled to receive a CT scan of the chest. Patient does not currently use oxygen. He reports having a cough over the last 4 days, denies fever. Denies chest pain. Denies lower extremity pain or swelling. Denies nausea or vomiting. Related Data Home Medications Medication Instructions Recorded Confirmed metoprolol tartrate 25 mg tablet 25 mg PO BID 12/23/20 09/11/22 prednisone 1 mg tablet 8 mg PO DAILY 12/23/20 09/11/22 rosuvastatin 40 mg tablet 40 mg PO DAILY 12/23/20 09/11/22 furosemide 20 mg tablet 10 mg PO QAM PRN Edema 11/13/21 09/11/22 lisinopril 10 mg tablet 20 mg PO DAILY 11/13/21 09/11/22 hydrochlorothiazide 25 mg tablet 25 mg PO DAILY 01/22/22 09/11/22 cholecalciferol (vitamin D3) 1,250 1,250 mcg PO WEEKLY 09/11/22 09/11/22 mcg (50,000 unit) capsule Allergies Allergy/AdvReac Type Severity Reaction Status Date / Time No Known Allergies Allergy Verified 09/28/22 22:02 Review of Systems Review of Systems: CONSTITUTIONAL: Denies fever, chills, or sweats. ENT: Denies rhinorrhea, congestion, sore throat, or otalgia. CARDIOVASCULAR: See HPI. RESPIRATORY: See HPI. GASTROINTESTINAL: Denies abdominal pain, nausea, vomiting, or diarrhea. NEUROLOGIC: See HPI. All systems reviewed & are unremarkable except as noted in HPI and below PMFSH Past Medical History Medical History Asthma-COPD overlap syndrome High cholesterol Hx of myocardial infarction Hyperlipidemia Hypertension Obstructive sleep apnea (adult) (pediatric) (2019) Polymyalgia rheumatica Surgical History Surgical History Hx of laminectomy L4 AND L5 Family History Family History Mother Alzheimers disease Arrhythmia Father Acute myocardial infarction CAD (coronary artery disease) Sibling , Heart attack at 53 No problems noted. Social History Social History Years smoked: 50 Smoking status: Former smoker Tobacco type: cigarettes Second hand tobacco smoke exposure: Yes Smoking end date: 02/08/22 Alcohol intake: former Substance use: current Substance use type: does not use Living arrangements: with family Occupation/Education: retired Gender identity (if verbalized by the patient): Male Spiritual care concerns: No Agree to blood products: Yes Exam Narrative: GENERAL: Well appearing, morbidly obese with BMI of 42, non-toxic, in no acute distress. HEAD: Normocephalic, atraumatic. NECK: Supple. No adenopathy, no masses. RESPIRATORY: Airway patent, respirations nonlabored. Slight crackles in left lung base. No other significant focal lung sounds. No wheezing. CARDIOVASCULAR: Regular rate and rhythm without murmurs, rubs, or gallops. Peripheral puls
[2022-09-29 01:17] LABS: NT Pro B Type Natriuretic Pept < 20 pg/mL (19.9-100); Troponin I < 0.012 ng/mL (0.000-0.034)
[2022-09-29 01:29] LABS: Troponin I < 0.012 ng/mL (0.000-0.034)
[2022-09-29 02:23] LABS: D Dimer 0.41 ug/mL (<0.48)
== END 2022-09-29 02:46 | disposition left against medical advice (07) ==
PROVIDERS: Preventive Medicine Aerospace Medicine; Emergency Provider Physician Assistant; PCP Family Medicine Adolescent Medicine
DX: J18.9 Pneumonia, unspecified organism (principal); D72.829 Elevated white blood cell count, unspecified; J44.9 Chronic obstructive pulmonary disease, unspecified; I25.2 Old myocardial infarction; I10 Essential (primary) hypertension; E78.00 Pure hypercholesterolemia, unspecified; E78.5 Hyperlipidemia, unspecified; M35.3 Polymyalgia rheumatica; G47.33 Obstructive sleep apnea (adult) (pediatric); Z87.891 Personal history of nicotine dependence; R00.0 Tachycardia, unspecified; I45.2 Bifascicular block
CPT/HCPCS: 36415; 71046; 80053; 83880; 84484; 85025; 85380; 93005; 99284

== ENCOUNTER 2022-10-01 12:24 | Outpatient (CLI) | payer MEDICARE, SELFPAY ==
[2022-10-01 13:00] VITALS: PULSE 95; O2SAT 92
[2022-10-01 13:05] VITALS: PULSE 123; O2SAT 85
[2022-10-01 13:10] VITALS: PULSE 121; O2SAT 87
[2022-10-01 13:15] VITALS: PULSE 120; O2SAT 90
[2022-10-01 13:30] VITALS: PULSE 96; O2SAT 91
--- NOTE | 2022-10-01 13:36 | HOMEO2EVAL ---
Evaluation was performed at [facility] Home Oxygen Evaluation RC: Home Oxygen (O2) Evaluation Start: 10/01/22 13:34 Freq: Status: Active Protocol: RPE Activity Type Activity Date Activity User E-sign Co-sign Detail Recorded Client Recorded Date Recorded By Document 10/01/22 13:00 [email or web address] [email or web address] 10/01/22 13:36 DJO Document 10/01/22 13:05 [email or web address] [email or web address] 10/01/22 13:36 DJO Document 10/01/22 13:10 [email or web address] [email or web address] 10/01/22 13:36 DJO Document 10/01/22 13:15 [email or web address] [email or web address] 10/01/22 13:36 DJO Document 10/01/22 13:30 [email or web address] [email or web address] 10/01/22 13:36 DJO 10/01/22 10/01/22 10/01/22 13:00 13:05 13:10 Home O2 Evaluation [Oxygen] -Test Phase Resting Exercise Exercise -Oxygen Delivery Room Air Room Air Nasal Cannula -Oxygen Flow Rate (L/min) 1 [Pulse Oximetry] -Pulse Oximetry (90-100 %) 92 85 L 87 L [Pulse Rate] -Pulse Rate (60-100 beats/min) 95 123 H 121 H [Evaluation] -Activity Tolerance [Charges] -Treatment Charges O2 Evaluation - Outpatient 10/01/22 10/01/22 13:15 13:30 Home O2 Evaluation [Oxygen] -Test Phase Exercise Resting -Oxygen Delivery Nasal Cannula Room Air -Oxygen Flow Rate (L/min) 2 [Pulse Oximetry] -Pulse Oximetry (90-100 %) 90 91 [Pulse Rate] -Pulse Rate (60-100 beats/min) 120 H 96 [Evaluation] -Activity Tolerance Good [Charges] -Treatment Charges
== END 2022-10-01 12:25 | disposition home or self-care (01) ==
PROVIDERS: PCP Family Medicine Adolescent Medicine; Visit Provider Physician Assistant
DX: J44.9 Chronic obstructive pulmonary disease, unspecified (principal)
CPT/HCPCS: 94618

== ENCOUNTER 2022-10-01 12:27 | Outpatient (CLI) | payer MEDICARE, SELFPAY ==
--- NOTE | ~2022-10-01 | CT_ITS ---
EXAMINATION: CT diagnostic chest wo con DATE: 10/01/2022 13:32 INDICATION: Chronic obstructive pulmonary disease TECHNIQUE: Computed tomography (CT) of the chest was performed without intravenous contrast. The dose -length product was 901.56 mGy-cm. Automated exposure control and iterative reconstruction technique were employed. COMPARISON: Chest x-ray dated 09/28/2022 FINDINGS: No significant pleural or pericardial effusion. Nonenlarged mediastinal lymph nodes, likely reactive. There is atherosclerosis of the aorta and coronary arteries. Heart size is normal. Atrophi c thyroid gland. Fatty infiltration of the liver. There are bilateral renal cysts, partially visualiz ed. Fatty infiltration of the liver. The spleen, pancreas and adrenal glands are grossly unremarkable . No endobronchial lesions. There are coarse linear infiltrates of the lower lobes and right middle lob e. No suspicious pulmonary nodules or masses. Mild emphysema. No endobronchial lesions. IMPRESSION: 1. Coarse linear bibasilar infiltrates, most likely atelectasis/scarring. Reviewed, dictated and finalized at location A.
== END 2022-10-01 12:28 | disposition home or self-care (01) ==
PROVIDERS: PCP Family Medicine Adolescent Medicine; Visit Provider Physician Assistant
DX: J44.9 Chronic obstructive pulmonary disease, unspecified (principal); Z87.891 Personal history of nicotine dependence
CPT/HCPCS: 71250; 94618

== ENCOUNTER 2022-12-12 12:36 | Outpatient (CLI) | payer MEDICARE, SELFPAY ==
[2022-12-12 12:35] VITALS: PULSE 89; O2SAT 92
[2022-12-12 12:40] VITALS: PULSE 114; O2SAT 85
[2022-12-12 12:45] VITALS: PULSE 115; O2SAT 87
[2022-12-12 12:50] VITALS: PULSE 106; O2SAT 90
[2022-12-12 13:10] VITALS: PULSE 90; O2SAT 92
--- NOTE | 2022-12-12 13:13 | HOMEO2EVAL ---
Evaluation was performed at [facility] Home Oxygen Evaluation RC: Home Oxygen (O2) Evaluation Start: 12/12/22 13:08 Freq: Status: Active Protocol: RPE Activity Type Activity Date Activity User E-sign Co-sign Detail Recorded Client Recorded Date Recorded By Document 12/12/22 12:35 PK [email or web address] 12/12/22 13:13 PKH Document 12/12/22 12:40 [email or web address] 12/12/22 13:13 PKH Document 12/12/22 12:45 PK [email or web address] 12/12/22 13:13 PK Document 12/12/22 12:50 PK [email or web address] 12/12/22 13:13 PK Document 12/12/22 13:10 PK [email or web address] 12/12/22 13:13 PK 12/12/22 12/12/22 12/12/22 12:35 12:40 12:45 Home O2 Evaluation [Oxygen] -Test Phase Resting Exercise Exercise -Oxygen Delivery Room Air Room Air Nasal Cannula -Oxygen Flow Rate (L/min) 1 [Pulse Oximetry] -Pulse Oximetry (90-100 %) 92 85 L 87 L [Pulse Rate] -Pulse Rate (60-100 beats/min) 89 114 H 115 H [Charges] -Treatment Charges O2 Evaluation - Outpatient 12/12/22 12/12/22 12:50 13:10 Home O2 Evaluation [Oxygen] -Test Phase Exercise Resting -Oxygen Delivery Nasal Cannula Room Air -Oxygen Flow Rate (L/min) 2 [Pulse Oximetry] -Pulse Oximetry (90-100 %) 90 92 [Pulse Rate] -Pulse Rate (60-100 beats/min) 106 H 90 [Charges] -Treatment Charges
== END 2022-12-12 12:37 | disposition home or self-care (01) ==
PROVIDERS: PCP Family Medicine Adolescent Medicine; Visit Provider Physician Assistant
DX: J96.11 Chronic respiratory failure with hypoxia (principal); Z99.81 Dependence on supplemental oxygen; J44.9 Chronic obstructive pulmonary disease, unspecified
CPT/HCPCS: 94618

== ENCOUNTER 2023-03-18 09:12 | Outpatient (CLI) | payer MEDICARE, SELFPAY ==
[2023-03-18] VITALS (7 sets, daily range): PULSE 93–118; O2SAT 87–92
--- NOTE | 2023-03-18 10:08 | HOMEO2EVAL ---
Addendum entered by Smita Banda, METAL BENDING MACHINE OPERATOR 03/18/23 12:01: Disregard note. See 1158 note for updated version. Original Note: Evaluation was performed at [facility] Home Oxygen Evaluation RC: Home Oxygen (O2) Evaluation Start: 03/18/23 10:03 Freq: Status: Active Protocol: RPE Activity Type Activity Date Activity User E-sign Co-sign Detail Recorded Client Recorded Date Recorded By Document 03/18/23 09:25 [email or web address] [email or web address] 03/18/23 10:08 PKH Document 03/18/23 09:30 [email or web address] [email or web address] 03/18/23 10:08 PKH Document 03/18/23 09:35 [email or web address] [email or web address] 03/18/23 10:08 PKH Document 03/18/23 09:45 [email or web address] [email or web address] 03/18/23 10:08 PKH Document 03/18/23 10:00 [email or web address] [email or web address] 03/18/23 10:08 PKH Document 03/18/23 10:05 [email or web address] [email or web address] 03/18/23 10:08 PKH 03/18/23 03/18/23 03/18/23 09:25 09:30 09:35 Home O2 Evaluation [Oxygen] -Test Phase Resting Resting Resting -Oxygen Delivery Room Air Nasal Cannula Nasal Cannula -Oxygen Flow Rate (L/min) 1 2 [Pulse Oximetry] -Pulse Oximetry (90-100 %) 87 L 87 L 91 [Pulse Rate] -Pulse Rate (60-100 beats/min) 96 118 H 110 H [Charges] -Evaluation Charges O2 Evaluation by Pulmonary 03/18/23 03/18/23 03/18/23 09:45 10:00 10:05 Home O2 Evaluation [Oxygen] -Test Phase Exercise Exercise Resting -Oxygen Delivery Nasal Cannula Nasal Cannula Nasal Cannula -Oxygen Flow Rate (L/min) 2 3 2 [Pulse Oximetry] -Pulse Oximetry (90-100 %) 87 L 90 91 [Pulse Rate] -Pulse Rate (60-100 beats/min) 110 H 111 H 93 [Charges] -Evaluation Charges
--- NOTE | 2023-03-18 11:58 | HOMEO2EVAL ---
Evaluation was performed at [facility] Home Oxygen Evaluation RC: Home Oxygen (O2) Evaluation Start: 03/18/23 10:03 Freq: Status: Active Protocol: RPE Activity Type Activity Date Activity User E-sign Co-sign Detail Recorded Client Recorded Date Recorded By Document 03/18/23 09:25 [email or web address] [email or web address] 03/18/23 11:58 KLA Document 03/18/23 09:30 [email or web address] [email or web address] 03/18/23 11:58 KLA Document 03/18/23 09:35 [email or web address] [email or web address] 03/18/23 11:58 KLA Document 03/18/23 09:45 PK [email or web address] 03/18/23 11:58 KLA Document 03/18/23 09:50 PKH [email or web address] 03/18/23 11:58 KLA Document 03/18/23 10:00 PK [email or web address] 03/18/23 11:58 KLA Document 03/18/23 10:05 [email or web address] [email or web address] 03/18/23 11:58 KLA 03/18/23 03/18/23 03/18/23 09:25 09:30 09:35 Home O2 Evaluation [Oxygen] -Test Phase Resting Resting Resting -Oxygen Delivery Room Air Nasal Cannula Nasal Cannula -Oxygen Flow Rate (L/min) 1 2 [Pulse Oximetry] -Pulse Oximetry (90-100 %) 87 L 87 L 91 [Pulse Rate] -Pulse Rate (60-100 beats/min) 96 118 H 110 H [Exercise] -Ambulation Distance (feet) -Ambulation Distance (meters) [Charges] -Evaluation Charges 03/18/23 03/18/23 03/18/23 09:45 09:50 10:00 Home O2 Evaluation [Oxygen] -Test Phase Exercise Exercise Exercise -Oxygen Delivery Nasal Cannula Nasal Cannula Nasal Cannula -Oxygen Flow Rate (L/min) 2 3 3 [Pulse Oximetry] -Pulse Oximetry (90-100 %) 87 L 90 92 [Pulse Rate] -Pulse Rate (60-100 beats/min) 110 H 110 H 111 H [Exercise] -Ambulation Distance (feet) -Ambulation Distance (meters) [Charges] -Evaluation Charges 03/18/23 10:05 Home O2 Evaluation [Oxygen] -Test Phase Resting -Oxygen Delivery Nasal Cannula -Oxygen Flow Rate (L/min) 2 [Pulse Oximetry] -Pulse Oximetry (90-100 %) 91 [Pulse Rate] -Pulse Rate (60-100 beats/min) 93 [Exercise] -Ambulation Distance (feet) 1,000 -Ambulation Distance (meters) 304.78 [Charges] -Evaluation Charges O2 Evaluation by Pulmonary
== END 2023-03-18 09:13 | disposition home or self-care (01) ==
LOC: ANHPFT 09:14
PROVIDERS: PCP Family Medicine Adolescent Medicine; Visit Provider Physician Assistant
DX: J44.9 Chronic obstructive pulmonary disease, unspecified (principal); J96.11 Chronic respiratory failure with hypoxia; Z99.81 Dependence on supplemental oxygen
CPT/HCPCS: 94618

== ENCOUNTER 2023-05-25 15:00 | Outpatient (RCR) | payer MEDICARE, SELFPAY | END 2023-06-01 14:31 | disposition home or self-care (01) | LOC: ANHCPREHAB 15:00 | PROVIDERS: PCP Family Medicine Adolescent Medicine; Visit Provider Internal Medicine Critical Care Medicine | DX: J44.9 Chronic obstructive pulmonary disease, unspecified (principal) | CPT/HCPCS: 94625 ==

== ENCOUNTER 2023-10-05 10:24 | Outpatient (CLI) | payer MEDICARE, SELFPAY ==
--- NOTE | ~2023-10-05 | CT_ITS ---
CT Scan of the Chest without Contrast: Clinical Indication: Lung cancer screening, nicotine dependence Technique: Contiguous sections were acquired throughout the chest without intravenous contrast. Dose reduction technique was used on this scan by utilizing automated exposure control and iterative recon struction technique. The dose-length product (DLP) was 645.13 mGy-cm. COMPARISON: 10/01/2022 Findings: There is no evidence of any significant mediastinal, hilar or axillary lymphadenopathy. Extensive cor onary artery calcifications are present. There is no evidence of pleural or pericardial effusion. The lungs are clear, aside from mild dependent atelectatic changes. Probable minimal emphysema. Images through the upper abdomen reveal diffuse hepatic steatosis. Impression: Lung RADS 1: Negative. 12 month follow-up screening CT advised. Reviewed, dictated and finalized at [facility]. Impression: Lung RADS 1: Negative. 12 month follow-up screening CT advised.
== END 2023-10-05 10:25 | disposition home or self-care (01) ==
LOC: ANHIMG 10:26
PROVIDERS: PCP Family Medicine Adolescent Medicine; Visit Provider Physician Assistant
DX: Z12.2 Encounter for screening for malignant neoplasm of respiratory organs (principal); Z87.891 Personal history of nicotine dependence
CPT/HCPCS: 71271

== ENCOUNTER 2024-07-20 14:41 | Outpatient (CLI) | payer MEDICARE, SELFPAY ==
--- NOTE | ~2024-07-20 | US_ITS ---
US soft tissue LE RT 07/20/2024 14:58 Indication: Mass right lower extremity calf. Suspect lipoma. Procedure: High-resolution ultrasound of the right lower extremity soft tissues Comparison: No prior studies for comparison. Findings: In the area of palpable concern there is an isoechoic parallel oriented mass with horizonta l septations and minimal internal vascularity measuring 11.9 x 11.8 x 1.5 cm, compatible with a lipom a. No other mass or fluid collection. Impression: 1: Probable benign lipoma in the area of palpable concern measuring 11.9 x 11.8 x 1.5 cm. Consider fo llow-up ultrasound as clinically warranted. Reviewed, dictated and finalized at location A. Impression: 1: Probable benign lipoma in the area of palpable concern measuring 11.9 x 11.8 x 1.5 cm. Consider follow-up ultrasound as clinically warranted.
== END 2024-07-20 14:42 | disposition home or self-care (01) ==
LOC: MICIMG 14:42
PROVIDERS: PCP Family Medicine Adolescent Medicine; Visit Provider Family Medicine Adolescent Medicine
DX: R22.41 Localized swelling, mass and lump, right lower limb (principal)
CPT/HCPCS: 76882

== ENCOUNTER 2024-10-08 10:00 | Outpatient (CLI) | payer MEDICARE, SELFPAY ==
--- NOTE | ~2024-10-08 | CT_ITS ---
CT Scan of the Chest without Contrast: Clinical Indication: Lung cancer screening, nicotine dependence Technique: Contiguous sections were acquired throughout the chest without intravenous contrast. Dose reduction technique was used on this scan by utilizing automated exposure control and iterative recon struction technique. The dose-length product (DLP) was 381.88 mGy-cm. COMPARISON: 10/05/2023 Findings: There is no evidence of any significant mediastinal, hilar or axillary lymphadenopathy. Extensive cor onary artery calcifications are present. There is no evidence of pleural or pericardial effusion. There is right basilar scarring or atelectasis. No discrete pulmonary nodule seen. Minimal emphysema. Images through the upper abdomen reveal no abnormalities. Impression: Lung RADS 1: Negative. 12 month follow-up screening CT advised. Reviewed, dictated and finalized at [facility]. Impression: Lung RADS 1: Negative. 12 month follow-up screening CT advised.
--- OUTSIDE RECORDS SUMMARY | 2024-10-08 10:06 | XMS_ITS | Encounter Summary ---
Author Organization [facility] Address [address] [place] [address] Care Team Providers Care Staff Design Engineer Name Role Phone Cortes Hanson MD Primary Care Provider + Radha Hollis MD Unavailable [phone] Encounter Details Date Type Department Care Team (Late st Contact Info) Description 09/17/2024 Results Follow-Up [facility] - Rheumatology [id number] [place] [id number] [place] [id number] [place] [address] Social History Tobacco Use Types Packs/Day Years Used Date Smoking Tobacco: Former Cigarettes 1 04/11/1991 - 02/08/2022 Smokeless Tobacco: Never Alcohol Use Standard Drinks/Week Comments Never 0 (1 standard drink = 0.6 oz pur e alcohol) PHQ-2 Answer Date Recorded Patient Health Questionnaire-2 Score 0 01/12/2024 Sex and Gender Information Value Date Recorded Sex Assigned at Male 05/27/2022 12:41 PM CDT Legal 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 Gender Identity Male 11/07/2020 1:37 PM CDT Sexual Orientation Not on file documented as of this encounter Plan of Treatment Upcoming Encounters Date Type Department Care Team (Late st Contact Info) Description 01/16/2025 1:15 PM 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 FERTILITY SPECIALIST Office Visit [facility] - Rheumatology [id number] [place] [address] [place] [address] [place] [id number] 04/10/2025 11:00 AM SOIL FERTILITY SPECIALIST Office Visit [facility] [address] [place], [place] [id number] [place] [address] [address] [address] [address] [place] [address] documented as of this encounter Visit Diagnoses Not on filedocumented in this encounter Care Teams Staff Design Engineer Relationship Specialty Start Date End Date Cortes Hanson MD [address] [place] [id number] PCP - General Family Medicine 11/07/20 Radha [place] [id number] [place] [address] [address] [place] [phone] Rheumatology 05/12/24 documented as of this encounter
--- OUTSIDE RECORDS SUMMARY | 2024-10-08 10:06 | XMS_ITS | Encounter Summary ---
Author Organization [facility] Address [address] [place] [address] Care Team Providers Care Kelp Or Seagrass Gatherer Name Role Phone Cortes Hanson MD Primary Care Provider + Radha Hollis MD Unavailable [phone] Reason for Visit * Reason Comments Follow-up Missed follow due to being ill. 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 MD Sayda, [facility] [address] [place] [address], [address] [id number] Exchange Patient: Peter Aranda Date of : 1955 PCP/Wood Car Builder:Cortes Hanson MD SUBJECTIVE Peter Aranda is a 68 year old male who presents to the clinic today Reason for Cardiology evaluation - cardiology fu CAD No Cp Chr dyspnea ROS A complete review of systems is performed. Pertinent negatives and/or positives are noted in HPI HISTORY No past medical history on file. No past surgical history on file. No Known Allergies Social History Tobacco Use Smoking status: Former Current packs/day: 0.00 Types: Cigarettes Start date: 02/09/1992 Quit date: 02/08/2022 Years since quittin.6 Smokeless tobacco: Never Vaping Use Vaping status: Never Used Substance Use Topics Alcohol use: Never Drug use: Never No family history on file. EXAMINATION Vitals: 10/07/24 1414 BP: 146/89 Pulse: 100 Weight: (!) 137.4 kg (303 lb) GENERAL: no acute distress SKIN: no rash HEENT: anicteric NECK: supple , no JVD LUNGS: clear to auscultation bilaterally HEART: Regular rate rhythm, Normal S1 S2 no murmur, no gallops ABDOMEN: soft, non-tender, non-distended, , non tender , bowel sounds present EXTREMITIES: no clubbing, cyanosis or edema .Pulses normal LABS Recent Labs Component Name 09/16/24 1248 08/11/24 1303 10/14/23 1337 WBC 15.5* 13.8* 12.0* HGB 14.3 13.7 13.5 HCT 47.6 44.7 42.2 PLTCOUNT 222 221 195 Recent Labs Component Name 09/16/24 1248 08/11/24 1303 10/14/23 1337 SODIUM 142 144 136 POTASSIUM 5.1 4.6 4.7 BUN 23 20 23 CREATININE 0.97 0.73 1.21 No results for input(s): CHOL, TRIG, HDL, LDLCALC in the last 92447 hours. Recent Labs Component Name 11/06/22 1331 BNP 17.4 No results for input(s): INR in the last 95949 hours. CURRENT MEDS Current Outpatient Medications Medication Sig Dispense Refill Albuterol Sulfate 108 (90 Base) MCG/ACT Inhale 1 puff by mouth as needed Virginiai Aerosphere 160-9-4.8 MCG/ACT AERO Inhale 2 (two) puffs by mouth 2 times daily glimepiride (Amaryl) 2 MG tablet Take 1 (one) tablet by mouth daily with breakfast lisinopril (Prinivil; Zestril) 20 MG tablet Take 1 (one) tablet by mouth once daily 90 tablet 3 metFORMIN ER 24hr (Glucophage XR) 500 MG tablet Take 4 (four) tablets by mouth once daily metoprolol tartrate IR (Lopressor) 25 MG tablet TAKE 1 TABLET(25 MG) BY MOUTH TWICE DAILY 180 tablet 3 OneTouch Ultra Test test strip Use 1 (one) strip once daily predniSONE (Deltasone) 1 MG tablet TAKE 3 TABLETS BY MOUTH DAILY 270 tablet 0 predniSONE (Deltasone) 5 MG tablet TAKE 1 TABLET BY MOUTH DAILY 90 tablet 0 pregabalin (Lyrica) 100 MG capsule TAKE 1 CAPSULE BY MOUTH TWICE DAILY 60 capsule 2 Roflumilast (Daliresp) 250 MCG tablet TAKE 1 TABLET BY MOUTH DAILY FOR 4 WEEKS THEN START THE 500MCG TABLETS THEREAFTER rosuvastatin (Crestor) 40 MG tablet TAKE 1 TABLET BY MOUTH DAILY 90 tablet 2 Tocilizumab-aazg (Tyenne) 162 MG/0.9ML auto-injector Inject 0.9 mL subcutaneously every 14 days 1.8mL 2 No current facility-administered medications for this visit. DATA Stress test 01/28 Myocardial perfusion imaging is abnormal for inferior/inferoseptal infarction with ischemia. Global left ventricular function is normal. Left Ventricular Ejection Fraction is 74 %. 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 Tests Ordered : No orders of the defined types were placed in this encounter. Follow up : 6mo Thank you for allowing us to participate in the care of Peter Aranda . Please do not hesitate to call me with any questions.(Pager [phone]) Grabiel Medina MD documented in this encounter Plan of Treatment Upcoming Encounters Date Type Department Care Team (Late st Contact Info) Description 01/16/2025 1:15 PM PRODUCE ASSISTANT Office Visit [facility] - Rheumatology [id number] [facility] [address] [place] [address] [place] [id number] [facility] [address] [place] [address] 04/10/2025 11:00 AM PRODUCE ASSISTANT Office Visit [facility] [address] [facility], [address] [place] [address] [place] [address] [facility] [address] [place], [place] [id number] documented as of this encounter Visit Diagnoses Diagnosis 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- Primary REILLY (dyspnea on exertion) Other dyspnea and respiratory abnormality Polymyalgia rheumatica (HCC) Polymyalgia rheumatica Benign essential HTN Essential hypertension, benign Dyslipidemia Other and unspecified hyperlipidemia documented in this encounter Care Teams Kelp Or Seagrass Gatherer Relationship Specialty Start Date End Date Cortes Hanson MD [address] [facility] [address] [place] [address] PCP - General Family Medicine 11/07/20 [place] [id number] [facility] [address] [place] [id number] Rheumatology 05/12/24 documented as of this encounter
--- OUTSIDE RECORDS SUMMARY | 2024-10-08 10:06 | XMS_ITS | Clinical Summary ---
Author Organization [facility] Address [address] [place] [address] Care Team Providers Care Pattern Ruler Name Role Phone Meg Pope MD Primary Care Provider [phone] Social History Tobacco Use Types Packs/Day Years Used Date Smoking Tobacco: Never Assessed Sex and Gender Information Value Date Recorded Sex Assigned at Not on file Legal Sex Male 10:22 PM DIRECTOR ACUTE Gender Identity Not on file Sexual Orientation Not on file Plan of Treatment Health Maintenance Due Date Last Done Comments Colorectal Cancer Screening Colonoscopy (10 Years) 1955 Hepatitis C 11/05/1973 DTaP, Tdap and Td Vaccines ( 1 - Tdap) 11/05/1974 Pneumococcal Vaccine: 50+ Ye ars (1 of 1 - PCV) 11/05/2005 Zoster Vaccines (1 of 2) 11/05/2005 COVID-19 Vaccine ( - 2023-2 5 season) 2023 RSV Immunization or 60+ Years (1 - 1-dose 75+ series) 11/05/2030 Meningococcal B Vaccine Aged Out No l onger eligible based on patient's age to complete this topic Meningococcal Vaccine Aged Out No ochoa lesly eligible based on patient's age to complete this topic RSV Immunizations Under 20 Months Aged Out No longer eligible based on patient's age to complete this topic Insurance Care Teams Pattern Ruler Relationship Specialty [place] [address] [place] [address] PCP - General RHEUMATOLOGY 02/29/20
--- OUTSIDE RECORDS SUMMARY | 2024-10-08 10:06 | XMS_ITS | Clinical Summary ---
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 Gender Identity Not on file Sexual Orientation Not on file Plan of Treatment Health Maintenance Due Date Last Done Comments Hepatitis C Virus (HCV) Screening 1955 TdaP Immunization 1955 Cologuard 11/05/2000 Colonoscopy 11/05/2000 Colorectal Cancer Screening 11/05/2000 Immunochemical Fecal Occult Blood 11/05/2000 Pneumococcal Immunization (5 0+ years) (1 of 1 - PCV) 11/05/2005 Zoster Immunization (1 of 2) 11/05/2005 SARS-COV-2 Immunization ( - season) 2023 Influenza Immunization (#1) 2024 Respiratory Syncytial Virus (RSV) Immunization (Adult) (1 - 1-dose 75+ series) 11/05/2030 Hepatitis B Immunization Aged Out No longer eligible based on patient's age to complete this topic Human Papillomavirus (HPV) Immunization Aged Out No longer eligible b ased on patient's age to complete this topic Meningococcal Immunization (ACWY) Aged Out No longer eligible based on patient's age to complete this topic Rotavirus Immunization Aged Out No lo nger eligible based on patient's age to complete this topic
--- OUTSIDE RECORDS SUMMARY | 2024-10-08 10:06 | XMS_ITS | Referral Summary ---
Author Organization [facility] [address] Address [address] [place] [address] Care Team Providers Care Stripper Apprentice Name Role Phone Cortes Hanson MD Primary Care Prov ider Allergies No known active allergies Medications nitroglycerin (NITROSTAT) 0.[address] 1 tablet by sublingual route at the 1st sign of attack; may repeat every 5 min until relief; if pain persists after 3 tablets in 15 min, prompt medical attention is recommended 0 0 04/17/19 17 Active ascorbic acid (vitamin C) 1,000 mg tablet take 1 by Oral route once 0 0 04/17/19 17 Active aspirin (ASPIRIN LOW DOSE) 81 mg tablet take 1 tablet by oral route every day 0 0 04/17/19 17 Active predniSONE (DELTASONE) 1 mg tablet Take 10 mg by mouth daily 3 04/05/19 19 Active furosemide (LASIX) 20 mg tabletIndications:Bi lateral lower extremity edema Take 1 tablet (20 mg total) by mouth daily as needed (edema) 30 tablet 3 10/02/19 19 Active buPROPion SR (WELLBUTRIN SR) 150 mg 12 hr tablet Take 150 mg by mouth 2 (two) times a day 02/04/20 22 Active hydroCHLOROthiazide (HYDRODIURIL) 25 mg tablet Take 1 tablet (25 mg total) by mouth daily 90 tablet 2 08/19/19 23 Active rosuvastatin (CRESTOR) 40 mg tabletIndications:Hy perlipidemia LDL goal <70,Coronary arteriosclerosis in [place] artery TAKE 1 TABLET(40 MG) BY MOUTH DAILY 90 tablet 1 03/30/19 24 Active metoprolol tartrate (LOPRESSOR) 25 mg immediate release tablet TAKE 1 TABLET(25 MG) BY MOUTH TWICE DAILY 180 tablet 1 05/07/19 24 Active lisinopriL (PRINIVIL,ZESTRIL) 20 mg tabletIndications:Es sential hypertension TAKE 1 TABLET(20 MG) BY MOUTH DAILY 90 tablet 06/11/19 24 Active Active Problems Problem Noted Date Diagnosed Date History of COVID-19 04/17/2020 Hyperlipidemia LDL goal <70 10/01/2018 Bilateral lower extremity edema 10/01/2018 GURMEET on CPAP 06/21/2018 Polymyalgia rheumatica 06/21/2018 Essential hypertension 06/21/2018 Former smoker 06/21/2018 History of heart artery stent 09/12/2016 Dyslipidemia 04/17/2016 Overview (06/13/2016): Dyslipidemia Tobacco abuse 04/17/2016 Overview (06/13/2016): Tobacco abuse Coronary arteriosclerosis in [place] artery 04/17 Overview (06/13/2016): Coronary artery disease involving [place] coronary artery of [place] mountain heart without angina pectoris History of placement of stent for coronary arter y disease 04/17/2016 Overview (06/13/2016): S/P coronary artery stent placement Non morbid obesity due to excess calories 2016 Overview (06/13/2016): Obesity (BMI 30.0-34.9) Social History Tobacco Use Types Packs/Day Years Used Date Smoking Tobacco: Former Cigarettes Q uit: 02/08/2017 Smokeless Tobacco: Never Tobacco Cessation:Counseling Given: Not Answered Comments:Smoking History Packs/day: 2 Packs Alcohol Use Standard Drinks/Week Comments No 0 (1 standard drink = 0.6 oz pur e alcohol) Personal Safety Answer Date Recorded Getting School Help Needed Not on file 03/28 Sex and Gender Information Value Date Recorded Sex Assigned at Not on file 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 Gender Identity Not on file Sexual Orientation Not on file Last Filed Vital Signs Vital Sign Reading Time Taken Comments Blood Pressure 106/64 05/12/2022 10:38 AM SENIOR LABORATORY TECHNICIAN Pulse 82 05/12/2022 10:38 AM SENIOR LABORATORY TECHNICIAN Temperature - - Respiratory Rate 18 09/12/2016 10:57 AM CDT Oxygen Saturation 93% 05/12/2022 10:38 AM SENIOR LABORATORY TECHNICIAN Inhaled Oxygen Concentration - - Weight 134.7 kg (297 lb) 05/12/2022 10:38 AM SENIOR LABORATORY TECHNICIAN Height 182.9 cm (6') 05/12/2022 10:38 AM SENIOR LABORATORY TECHNICIAN Body Mass Index 40.28 05/12/2022 10:38 AM SENIOR LABORATORY TECHNICIAN Plan of Treatment Not on file Procedures Procedure Name Priority Date/Time Associated Diagnosis Comments US ABDOMINAL AORTIC ANEURYSM SCREENING Schedule Routine, Read Routine (OP Routine) 11/07/2021 Tobacco abuse from Last 3 Months or Most Recently Relevant to Health Maintenance Results * US Abdominal Aortic Aneurysm Screening (11/07/2021) Anatomical Region Laterality Modality Abdomen Ultrasound us Catrachito Reis MD IMG US PROCEDURES Final R esult from Last 3 Months or Most Recently Relevant to Health Maintenance Insurance [facility] MEDICARE ADVANTAGE [facility] MEDICARE ADVANTAGE Care Teams Stripper Apprentice Relationship Specialty Start Date End Date Cortes Hanson MD [address] [place] [address] PCP - General 04/17/16
--- OUTSIDE RECORDS SUMMARY | 2024-10-08 10:06 | XMS_ITS | Encounter Summary ---
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 Historical Provider [facility] Final Result documented in this encounter Visit Diagnoses Not on filedocumented in this encounter Care Teams Picture Hanger Relationship Specialty Start Date End Date Cortes Hanson MD [address] [place], [place] [id number] PCP - General 04/17/16 Cortes Hanson MD [address] [place] [address] PCP - General 08/17/09 04/16/16 documented as of this encounter
--- OUTSIDE RECORDS SUMMARY | 2024-10-08 10:06 | XMS_ITS | Clinical Summary ---
Author Organization [facility] Address [address] [place] [address] Care Team Providers Care Supervisor Shuttle Fitting Name Role Phone Cortes Hanson MD Primary Care Provider + Radha Hollis MD Unavailable [phone] Source Comments [facility],non-owned Affiliates and Associated Physician Practices is amultiple site organization consisting of ambulatory clinics and hospital sitesin [place], [place], [place] and [place]. This disclosure is being madepursuant to the Care Everywhere program and may not contain all information available regarding this patient. Last updated 17.[facility] [employer] Allergies No known active allergies Medications * Be aware that medications may not be up to date on this document. Alwaysverify current medications with the patient. Breztri Aerosphere 160-9-4.8 MCG/ACT AERO Inhale 2 (two) puffs by mouth 2 times daily 023 Active Albuterol Sulfate 108 (90 Base) MCG/ACT Inhale 1 puff by mouth as needed Active Roflumilast (Daliresp) 250 MCG tablet TAKE 1 TABLET BY MOUTH DAILY FOR 4 WEEKS THEN START THE 500MCG TABLETS THEREAFTER 024 Active metoprolol tartrate IR (Lopressor) 25 MG tablet TAKE 1 TABLET(25 MG) BY MOUTH TWICE DAILY 180 tablet 3 024 Active metFORMIN ER 24hr (Glucophage XR) 500 MG tablet Take 4 (four) tablets by mouth once daily 024 Active glimepiride (Amaryl) 2 MG tablet Take 1 (one) tablet by mouth daily with breakfast Active pregabalin (Lyrica) 100 MG capsule TAKE 1 CAPSULE BY MOUTH TWICE DAILY 60 capsule 2 025 Active OneTouch Ultra Test test strip Use 1 (one) strip once daily 025 Active predniSONE (Deltasone) 5 MG tabletIndicat ions:PMR (polymyalgia rheumatica) (HCC),Polyart hralgia TAKE 1 TABLET BY MOUTH DAILY 90 tablet 025 Active predniSONE (Deltasone) 1 MG tabletIndicat ions:PMR (polymyalgia rheumatica) (HCC),Polyart hralgia TAKE 3 TABLETS BY MOUTH DAILY 270 tablet 025 Active Tocilizumab-a azg (Tyenne) 162 MG/0.9ML auto-injector Inject 0.9 mL subcutaneously every 14 days 1.8 mL 2 025 Active rosuvastatin (Crestor) 40 MG tablet TAKE 1 TABLET BY MOUTH DAILY 90 tablet 2 025 Active lisinopril (Prinivil; Zestril) 20 MG tablet Take 1 (one) tablet by mouth once daily 90 tablet 3 025 Active ASPIRIN EC LOW DOSE PO 2024 Discontinued(L ist Clean-Up) furosemide (Lasix) 20 MG tablet TAKE 1 TABLET BY MOUTH NEEDED 90 tablet 023 2024 Discontinued(L ist Clean-Up) lisinopril (Prinivil; Zestril) 20 MG tablet Take 1 (one) tablet by mouth once daily 90 tablet 3 024 2024 Discontinued(R eorder) hydroCHLOROth iazide (Hydrodiuril) 25 MG tablet TAKE 1 TABLET BY MOUTH EVERY DAY 90 tablet 3 024 2024 Discontinued(L ist Clean-Up) rosuvastatin (Crestor) 40 MG tablet Take 1 (one) tablet by mouth once daily 90 tablet 2 024 2024 Discontinued vitamin D, ergocalcifero l, (Drisdol) 1.25 MG (02884 UT) capsuleIndica tions:Vitamin D deficiency Take 1 (one) capsule by mouth every 7 days 12 capsule 025 2024 Discontinued(L ist Clean-Up) Active Problems Problem Noted Date Diagnosed Date Asthma 09/12/2024 COPD (chronic obstructive pulmonary disease) wit h emphysema 09/12/2024 Inflammatory polyarthropathy 01/12/2024 Diabetes 1.5, 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 [address] [place] [address] [address] [place] [address] Radha Hollis MD Medication Prior Auth Request (Actemra 162MG Actpen) 09/21/[address] [facility] [address] [place] [address] [address] [place] [address] Radha Hollis MD LABS ONLY 09/19/2024 Telephone [facility] [address], [address] [place] [address] Radha Hollis MD LABS ONLY 09/17/2024 Results Follow-Up [facility] [id number] [place] [address] [address] [place] [address] Radha Hollis MD 09/12/2024 1:15 PM CDT Office Visit [address] [place] [address] Radha Hollis MD Rheumatoid arthritis of multiple sites without rheumatoid factor (HCC) (Primary Dx); PMR (polymyalgia rheumatica) (HCC); Polyarthralgia; Vitamin D deficiency; High risk medications (not anticoagulants) long-term use; Immunosuppressed status (HCC); 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; Inflammatory polyarthropathy (HCC) 09/12/[address], [address] [place] [address] Radha Hollis MD Pre Authorization 08/15/[address] [place] [address] Radha Hollis MD Refill Request 08/14/2024 Results Follow-Up [address] [place] [address] Radha Hollis MD from Last 3 Months Immunizations Immunization Administration Dates Next Due Zoster Hzv Vacc Recombinant Inj Im 04/01/2022 Social History Tobacco Use Types Packs/Day Years Used Date Smoking Tobacco: Former Cigarettes 1 04/11/1991 - 02/08/2022 Smokeless Tobacco: Never Tobacco Cessation:Counseling Given: Not Answered Alcohol Use Standard Drinks/Week Comments Never 0 (1 standard drink = 0.6 oz pur e alcohol) PHQ-2 Answer Date Recorded Patient Health Questionnaire-2 Score 0 01/12/2024 Sex and Gender Information Value Date Recorded Sex Assigned at Male 05/27/2022 12:41 PM CDT Legal Sex Male 6:17 AM [employer] Gender Identity Male 11/07/2020 1:37 PM CDT Sexual Orientation Not on file Last Filed Vital Signs Vital Sign Reading Time Taken Comments Blood Pressure 146/89 10/07/2024 2:14 PM CDT Pulse 100 10/07/2024 2:14 PM CDT Temperature 35.9 C (96.7 F) 09/16/2023 1:27 PM CDT Respiratory Rate 18 05/12/2024 12:58 PM [employer] Oxygen Saturation 89% 09/12/2024 1:15 PM CDT Inhaled Oxygen Concentration - - Weight 137.4 kg (303 lb) 10/07/2024 2:14 PM CDT Height 185.4 cm (6' 1) 09/12/2024 1:15 PM CDT Body Mass Index 39.98 09/12/2024 1:15 PM CDT Plan of Treatment Upcoming Encounters Date Type Department Care Team (Late st Contact Info) Description 01/16/2025 1:15 PM [employer] Office Visit [facility] - Rheumatology [address] [place] [address] [place] [address] [place] [id number] 04/10/2025 11:00 AM [employer] Office Visit [facility] [address], [address] [place] [address] [place] [address] [place], [place] [id number] Health Maintenance Due Date Last Done Comments BONE DENSITY TESTING 1955 COLON MONITORING 1955 COLONOSCOPY - COLON CA SCREENING 1955 CT COLONOGRAPHY - COLON CA SCREENING 1955 FIT - COLON CA SCREENING 1955 FLEX SIG - COLON CA SCREENING 1955 DTAP/TDAP/TD VACCINES (1 - Tdap) 11/05/1974 PNEUMOCOCCAL VACCINE 50+ (1 of 2 - PCV) 11/05/1974 Respiratory Syncytial Virus (RSV) Vaccine Pt: or over 60 yrs (1 - Risk 60-74 years 1-dose series) 2015 COVID-19 VACCINE (3 - Pfizer risk series) 11/21/2020 10/24/2020, 10/03/2020 ZOSTER VACCINE (2 of 2) 05/27/2022 04/01/2022 DEPRESSION SCREENING 03/09/2024 01/12/2024, 06/11/19 DIABETES - URINE PROTEIN SCREENING 03/09/2024 MEDICARE AWV CALENDAR YEAR 2024 DIABETES RETINOPATHY SCREENING 09/12/2024 DIABETES-FOOT EXAM WITH MONOFILAMENT 09/12/2024 INFLUENZA VACCINE (#1) 2024 DIABETES-HGB A1C 02/10/2025 08/11/2024, 10/14/2023 DIABETES-SERUM CREATININE 09/16/20252024, 08/11/2024, 10/14/2023, Additional history exists COLOGUARD (AGES 45-75) - COLON CA SCREENING 12/03/2025 12/03/2022 Colorectal Cancer Screening 12/03/2025 AAA SCREENING Completed 11/07/2021, 11/07/2021 HEPATITIS C SCREENING Completed 09/21/2024, 021 HEPATITIS B VACCINE Aged Out No longe r eligible based on patient's age to complete this topic HIB VACCINE Aged Out No longer eligi ble based on patient's age to complete this topic HPV VACCINE Aged Out No longer eligi ble based on patient's age to complete this topic MENINGOCOCCAL (Group B) VACCINE SHARED DECISION-MAKING Aged Out No longer eligible based on patient's age to complete this topic MENINGOCOCCAL GROUPS A/C/Y/W VACCINE Aged Out No longer eligible based on patient's age to complete this topic Procedures Procedure Name Priority Date/Time Associated Diagnosis Comments QUANTIFERON TB-GOLD Routine 09/21/2024 1 :29 PM CDT HEPATITIS SCREEN ACUTE ([facility]) Routine 09/21/2024 1:29 PM CDT VITAMIN D 25-HYDROXY Routine 09/16/2024 12:49 PM CDT PMR (polymyalgia rheumatica) (HCC) Polyarthralgia Vitamin D deficiency High risk medications (not anticoagulants) long-term use Immunosuppressed status (HCC) 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 Inflammatory polyarthropathy (HCC) ERYTHROCYTE SEDIMENTATION RATE Routine 09/16/2024 12:49 PM CDT PMR (polymyalgia rheumatica) (HCC) Polyarthralgia Vitamin D deficiency High risk medications (not anticoagulants) long-term use Immunosuppressed status (HCC) 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 Inflammatory polyarthropathy (HCC) C-REACTIVE PROTEIN Routine 09/16/2024 12 :49 PM CDT PMR (polymyalgia rheumatica) (HCC) Polyarthralgia Vitamin D deficiency High risk medications (not anticoagulants) long-term use Immunosuppressed status (HCC) 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 Inflammatory polyarthropathy (HCC) COMPREHENSIVE METABOLIC PANEL Routine 09/16/2024 12:48 PM CDT PMR (polymyalgia rheumatica) (HCC) Polyarthralgia Vitamin D deficiency High risk medications (not anticoagulants) long-term use Immunosuppressed status (HCC) 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 Inflammatory polyarthropathy (HCC) Rheumatoid arthritis of multiple sites without rheumatoid factor (HCC) CBC W AUTO DIFFERENTIAL Routine 09/16/2024 12:48 PM CDT PMR (polymyalgia rheumatica) (HCC) Polyarthralgia Vitamin D deficiency High risk medications (not anticoagulants) long-term use Immunosuppressed status (HCC) 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 Inflammatory polyarthropathy (HCC) HEMOGLOBIN A1C Routine 08/11/2024 1:03 PM CDT PMR (polymyalgia rheumatica) (HCC) Polyarthralgia High risk medications (not anticoagulants) long-term use Immunosuppressed status (HCC) Vitamin D deficiency 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 VITAMIN D 25-HYDROXY Routine 08/11/2024 1:03 PM CDT PMR (polymyalgia rheumatica) (HCC) Polyarthralgia High risk medications (not anticoagulants) long-term use Immunosuppressed status (HCC) Vitamin D deficiency 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 ERYTHROCYTE SEDIMENTATION RATE Routine 08/11/2024 1:03 PM CDT PMR (polymyalgia rheumatica) (HCC) Polyarthralgia High risk medications (not anticoagulants) long-term use Immunosuppressed status (HCC) Vitamin D deficiency 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 C-REACTIVE PROTEIN Routine 08/11/2024 1: 03 PM CDT PMR (polymyalgia rheumatica) (HCC) Polyarthralgia High risk medications (not anticoagulants) long-term use Immunosuppressed status (HCC) Vitamin D deficiency 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 COMPREHENSIVE METABOLIC PANEL Routine 08/11/2024 1:03 PM CDT PMR (polymyalgia rheumatica) (HCC) Polyarthralgia High risk medications (not anticoagulants) long-term use Immunosuppressed status (HCC) Vitamin D deficiency 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 Hepatitis B Virus Surface Antigen Negative Negative [facility] INSURANCE BILL Hepatitis B Core Virus Antibody IgM Negative Negative [facility] INSURANCE BILL Hepatitis C Antibody Non Reactive Non Reactive [facility] INSURANCE BILL Comment: Performed at: - [facility] [id number] Training Representative: Brock Sutherland PhD, Phone: [phone] Interpretation Comment [facility] INSURANCE BILL Comment: Not infected with HCV unless early or acute infection is suspected (which may be delayed in an immunocompromised individual), or other evidence exists to indicate HCV infection. 09/21/2024 1:29 PM CDT 09/21/2024 Narrative [facility] INSURANCE BILL - 09/22/2024 9:11 AM CDT Performed at: [address] [place] [id number] Training Representative: Brock Sutherland PhD, Phone: [phone] Radha Hollis MD LAB - CHEMISTRY ORDERABLES [place] Result [facility] INSURANCE BILL [address] [place] [address] * QUANTIFERON TB-GOLD (09/21/2024 1:29 PM CDT) [facility] QuantiFERON Incubation Incubation performed. [facility] INSURANCE BILL QuantiFERON-TB Gold Plus Negative Negative [facility] INSURANCE BILL Comment: No response to M tuberculosis antigens detected. Infection with M tuberculosis is unlikely, but high risk individuals should be considered for additional testing (ATS/IDSA/CDC Clinical Practice Guidelines, 2017). The reference range is an Antigen minus Nil result of <0.35 IU/mL. Chemiluminescence immunoassay methodology Performed at: [address] [place] [id number] Training Representative: Brock Sutherland PhD, Phone: [phone] QuantiFERON Criteria Comment [facility] INSURANCE BILL Comment: QuantiFERON-TB Gold Plus is a qualitative indirect test for M tuberculosis infection (including disease) and is intended for use in conjunction with risk assessment, radiography, and other medical and diagnostic evaluations. The QuantiFERON-TB Gold Plus result is determined by subtracting the Nil value from either TB antigen (Ag) value. The Mitogen tube serves as a control for the test. QuantiFERON TB1 Ag Value 0.01 IU/mL [facility] INSURANCE BILL QuantiFERON TB2 Ag Value 0.00 IU/mL [facility] INSURANCE BILL QuantiFERON Nil Value 0.01 IU/mL [facility] INSURANCE BILL QuantiFERON Mitogen Value >10.00 IU/mL [facility] INSURANCE BILL 09/21/2024 1:29 PM CDT 09/21/2024 Narrative [facility] INSURANCE BILL - 09/23/2024 11:08 PM CDT Performed at: [address] [place] [id number] Training Representative: Brock Sutherland PhD, Phone: [phone] Specimen Comment: A courtesy copy of this report has been sent to Dr. Luis Fernandes Radha Hollis MD LAB - CHEMISTRY ORDERABLES [place] Result Performing Organization Address City/[facility]/ZIP Co de Phone Number [facility] INSURANCE BILL [address] [place] [address] * C-REACTIVE PROTEIN (09/16/2024 12:49 PM CDT) Only the most recent of2 resultswithin the time period is included. C-Reactive Protein 2 0 - 10 mg/L [facility] ACCOUNT BILL Blood BLOOD SPECIMEN / Unknown 09/16/2024 12:49 PM CDT 09/16/2024 Narrative [facility] ACCOUNT BILL - 09/17/2024 10:10 AM CDT Performed at: 01 - [facility] [id number] [place], [place] [id number] Training Representative: Brock Sutherland PhD, Phone: [phone] Radha Hollis MD LAB - CHEMISTRY ORDERABLES [place] Result Performing Organization Address [facility] de Phone Number [facility] ACCOUNT BILL [address] [place] [address] * VITAMIN D 25-HYDROXY (09/16/2024 12:49 PM CDT) Only the most recent of2 resultswithin the time period is included. Vitamin D, 25 Hydroxy 39.6 30.0 - 100.0 ng/mL [facility] ACCOUNT BILL Comment: Vitamin D deficiency has been defined by the [place] of Medicine and an Endocrine Society practice guideline as a level of serum 25-OH vitamin D less than 20 ng/mL (1,2). The Endocrine Society went on to further define vitamin D insufficiency as a level between 21 and 29 ng/mL (2). 1. IOM ([place] of Medicine). 2010. Dietary reference intakes for calcium and D. [place]: The National Academies Press. 2. Magaly GODWIN, Rula FLORES, Nidia ABRNEY, et al. Evaluation, treatment, and prevention of vitamin D deficiency: an Endocrine Society clinical practice guideline. JCEM. 2010; 96(7):1911-30. Blood BLOOD SPECIMEN / Unknown 09/16/2024 12:49 PM CDT 09/16/2024 Narrative [facility] ACCOUNT BILL - 09/17/2024 7:09 AM CDT Performed at: [facility] [id number] Training Representative: Brock Sutherland PhD, Phone: [phone] Radha Hollis MD LAB - CHEMISTRY ORDERABLES [place] Result Performing Organization Address [facility] de Phone Number [facility] ACCOUNT BILL [address] [place] [id number] * ERYTHROCYTE SEDIMENTATION RATE (09/16/2024 12:49 PM CDT) Only the most recent of2 resultswithin the time period is included. Erythrocyte Sedimentation Rate Westergren 30 0 - 30 mm/hr [facility] ACCOUNT BILL Blood BLOOD SPECIMEN / Unknown 09/16/2024 12:49 PM CDT 09/16/2024 Narrative [facility] ACCOUNT BILL - 09/17/2024 7:09 AM CDT Performed at: [facility] [id number] Training Representative: Brock Sutherland PhD, Phone: [phone] Radha Hollis MD LAB - HEMATOLOGY ORDERABLES Fin al Result Performing Organization Address City/[facility] Co de Phone Number [facility] ACCOUNT BILL [address] [place] [address] * (ABNORMAL) CBC WITH DIFFERENTIAL (09/16/2024 12:48 PM CDT) Only the most recent of2 resultswithin the time period is included. WBC 15.5(H) 3.4 - 10.8 x10E3/uL [facility] ACCOUNT BILL RBC 5.06 4.14 - 5.80 x10E6/uL [facility] ACCOUNT BILL Hemoglobin 14.3 13.0 - 17.7 g/dL [facility] ACCOUNT BILL Hematocrit 47.6 37.5 - 51.0 % [facility] ACCOUNT BILL MCV 94 79 - 97 fL [facility] ACCOUNT BILL MCH 28.3 26.6 - 33.0 pg [facility] ACCOUNT BILL MCHC 30.0(L) 31.5 - 35.7 g/dL [facility] ACCOUNT BILL RDW 13.5 11.6 - 15.4 % [facility] ACCOUNT BILL Platelet Count 222 150 - 450 x10E3/uL [facility] ACCOUNT BILL Granulocytes % 79 Not Estab. % [facility] ACCOUNT BILL Lymphocytes % 14 Not Estab. % [facility] ACCOUNT BILL Monocytes % 5 Not Estab. % [facility] ACCOUNT BILL Eosinophils % 1 Not Estab. % [facility] ACCOUNT BILL Basophils % 0 Not Estab. % [facility] ACCOUNT BILL Granulocytes Absolute 12.2(H) 1.4 - 7.0 x10E3/uL [facility] ACCOUNT BILL Lymphocytes Absolute 2.2 0.7 - 3.1 x10E3/uL [facility] ACCOUNT BILL Monocytes Absolute 0.8 0.1 - 0.9 x10E3/uL [facility] ACCOUNT BILL Eosinophils Absolute 0.1 0.0 - 0.4 x10E3/uL [facility] ACCOUNT BILL Basophils Absolute 0.1 0.0 - 0.2 x10E3/uL [facility] ACCOUNT BILL Immature Granulocytes 1 Not Estab. % [facility] ACCOUNT BILL Immature Granulocytes Absolute 0.1 0.0 - 0.1 x10E3/uL [facility] ACCOUNT BILL Blood BLOOD SPECIMEN / Unknown 09/16/2024 12:48 PM CDT 09/16/2024 Narrative [facility] ACCOUNT BILL - 09/17/2024 6:09 AM CDT Performed at: 01 - [facility] [place] [id number] [place], [place] [id number] Training Representative: Brock Sutherland PhD, Phone: [phone] us Radha Hollis MD LAB - HEMATOLOGY ORDERABLES Fin al Result [facility] ACCOUNT BILL [address] [place] [address] * (ABNORMAL) COMPREHENSIVE METABOLIC PANEL (09/16/2024 12:48 PM CDT) Only the most recent of2 resultswithin the time period is included. Glucose 169(H) 70 - 99 mg/dL [facility] ACCOUNT BILL BUN 23 8 - 27 mg/dL [facility] ACCOUNT BILL Creatinine 0.97 0.76 - 1.27 mg/dL [facility] ACCOUNT BILL eGFR by CKD-EPI 85 >59 mL/min/1.7 3 [facility] ACCOUNT BILL BUN/Creatinine Ratio 24 10 - 24 [facility] ACCOUNT BILL Sodium 142 134 - 144 mmol/L [facility] ACCOUNT BILL Potassium 5.1 3.5 - 5.2 mmol/L [facility] ACCOUNT BILL Chloride 99 96 - 106 mmol/L [facility] ACCOUNT BILL CO2 26 20 - 29 mmol/L [facility] ACCOUNT BILL Calcium 9.5 8.6 - 10.2 mg/dL [facility] ACCOUNT BILL Protein Total 6.6 6.0 - 8.5 g/dL [facility] ACCOUNT BILL Albumin 4.2 3.9 - 4.9 g/dL [facility] ACCOUNT BILL Globulin Total 2.4 1.5 - 4.5 g/dL [facility] ACCOUNT BILL Bilirubin Total 0.3 0.0 - 1.2 mg/dL [facility] ACCOUNT BILL Alkaline Phosphatase 90 44 - 121 IU/L [facility] ACCOUNT BILL AST 25 0 - 40 IU/L [facility] ACCOUNT BILL ALT 19 0 - 44 IU/L [facility] ACCOUNT BILL Blood BLOOD SPECIMEN / Unknown 09/16/2024 12:48 PM CDT 09/16/2024 Narrative [facility] ACCOUNT BILL - 09/17/2024 6:09 AM CDT Performed at: 01 - [facility] [id number] Training Representative: Brock Sutherland PhD, Phone: [phone] us Radha Hollis MD LAB - CHEMISTRY ORDERABLES [place] Result [facility] ACCOUNT BILL [address] [place] [address] * (ABNORMAL) HEMOGLOBIN A1C (08/11/2024 1:03 PM CDT) Hemoglobin A1c 6.6(H) <5.7 % [facility] ACCOUNT BILL Comment: AVERAGE GLUCOSE MG/DL BLOOD 143 mg/dL HbA1c Interpretation: Normal: < 5.7% Pre-diabetes: 5.7-6.4% Diabetes: Equal to or greater than 6.5% Test results diagnostic of diabetes should be repeated for c onfirmation. Treatment target values recommended by ADA and other clinica l organizations should be used to evaluate metabolic control in patients. This test should not replace glucose testing for patients wi th Type 1 diabetes, pediatric patients, or women. Falsely low HbA1c results may be observed in patients with c linical conditions that shorten erythrocyte life span or dec rease mean erythrocyte age such as the presence of unstable hemoglobin variants, elevated hemoglobin F level or other ca uses of hemolytic anemia. HbA1c may not accurately reflect glycemic control when clinical conditions that affect erythr ocyte survival are present. Severe Iron deficiency anemia m ay yield falsely high results. Hemoglobin A1c assay should not be used to diagnose or monitor diabetes in patients with malignancy, recent blood transfusion, chronic kidney or blane er disease. This method may yield falsely low results when hemoglobin (HbF) exceeds 5% in the specimen. The Procurify Alinity assay for the measurement of HbA1c is a [facility] Glycohemoglobin Standardization Program (NGSP) certi fied method. Blood BLOOD SPECIMEN / Unknown 08/11/2024 1:03 PM CDT 08/11/2024 Narrative [facility] ACCOUNT BILL - 08/11/2024 11:08 PM CDT Performed at: [address] [place] [address] [place] [id number] Training Representative: Chase Paige [facility], Phone: [phone] us Radha Hollis MD LAB - CHEMISTRY ORDERABLES [place] Result [facility] ACCOUNT BILL [address] [place] [address] from Last 3 Months Insurance [facility] MANAGED MEDICARE ADV Care Teams Supervisor Shuttle Fitting Relationship Specialty Start Date End Date Cortes Hanson MD [address] [address] PCP - General Family Medicine 11/07/20 [place] [id number] [address] Rheumatology 05/12/24
--- OUTSIDE RECORDS SUMMARY | 2024-10-08 10:06 | XMS_ITS | Encounter Summary ---
Author Organization [facility] Address [address] [place] [address] Care Team Providers Care Boring And Filling Machine Operator Name Role Phone Cortes Hanson MD Primary Care Provider + Radha Hollis MD Unavailable [phone] Reason for Visit * Reason Onset Date Comments MEDICATION REFILL 10/05/2024 Encounter Details Date Type Department Care Team (Late st Contact Info) Description 10/05/2024 Refill [facility] Heart & Vascular Care [address] [facility], [address] [place] [address] [place] [address] [facility] [address] [place] [address] MEDICATION REFILL Social History Tobacco Use Types Packs/Day Years [...] PM CDT Legal Sex Male 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 Gender Identity Male 11/07/2020 1:37 PM CDT Sexual Orientation Not on file documented as of this encounter Plan of Treatment Upcoming Encounters Date Type Department Care Team (Late st Contact Info) Description 01/16/2025 1:15 PM PURCHASING EXPEDITOR Office Visit [facility] - Rheumatology [address] [facility] [address] [place] [address] [place] [address] [facility] [address] [place] [phone] 04/10/2025 11:00 AM PURCHASING EXPEDITOR Office Visit [facility] Care [address] [facility], [address] [place] [address] [place] [address] [facility] [address] [place], [place] [id number] documented as of this encounter Visit Diagnoses Not on filedocumented in this encounter Care Teams Boring And Filling Machine Operator Relationship Specialty Start Date End Date Cortes Hanson MD [address] [place] [address] PCP - General Family Medicine 11/07/20 [place] [address] [facility] [address] [place] [phone] Rheumatology 05/12/24 documented as of this encounter
--- OUTSIDE RECORDS SUMMARY | 2024-10-08 10:06 | XMS_ITS | Encounter Summary ---
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 Historical Provider [facility] Final Result documented in this encounter Visit Diagnoses Not on filedocumented in this encounter Care Teams Cryptozoologist Relationship Specialty Start Date End Date Cortes Hanson MD [address] [place], [place] [id number] PCP - General 04/17/16 Cortes Hanson MD [address] [place] [address] PCP - General 08/17/09 04/16/16 documented as of this encounter
--- OUTSIDE RECORDS SUMMARY | 2024-10-08 10:06 | XMS_ITS | Encounter Summary ---
Author Organization [facility] Address [address] [facility] [place] [address] Care Team Providers Care Dormitory Supervisor Name Role Phone Cortes Hanson MD Primary Care Provider + Radha Hollis MD Unavailable [phone] Reason for Visit * Reason Comments Refill Request Encounter Details Date Type Department Care Team (Late st Contact Info) Description 10/03/2024 Refill [facility] Heart & Vascular Care [address] [facility], [address] [place] [address] [place] [address] [facility] [address] [place] [address] Refill Request Social History Tobacco Use Types Packs/Day Years [...] PM CDT Legal Sex Male 6:17 AM STUDENT LIFE ADVISOR Gender Identity Male 11/07/2020 1:37 PM CDT Sexual Orientation Not on file documented as of this encounter Plan of Treatment Upcoming Encounters Date Type Department Care Team (Late st Contact Info) Description 01/16/2025 1:15 PM STUDENT LIFE ADVISOR Office Visit [facility] - Rheumatology [address] [facility] [address] [place] [address] [place] [address] [facility] [address] [place] [address] 04/10/2025 11:00 AM STUDENT LIFE ADVISOR Office Visit [facility] Health Heart & Vascular Care [address] [facility], [address] [place] [address] [place] [address] [facility] [address] [place] [address] documented as of this encounter Visit Diagnoses Not on filedocumented in this encounter Care Teams Dormitory Supervisor Relationship Specialty Start Date End Date Cortes Hanson MD [address] [address] PCP - General Family Medicine 11/07/20 [place] [id number] [place] [address] [address] [place] [phone] Rheumatology 05/12/24 documented as of this encounter
--- OUTSIDE RECORDS SUMMARY | 2024-10-08 10:06 | XMS_ITS | Encounter Summary ---
Author Organization [facility] Address [address] [address] Care Team Providers Care Sharepoint Application Architect Name Role Phone Cortes Hanson MD Primary Care Prov ider Cortes Hanson MD Primary Care Prov ider Encounter Details Date Type Department Care Team (Late st Contact Info) Description 03/14/2016 Orders Only [facility] ProviderTaylor MD [address] [place] [address] Social History Tobacco Use Types Packs/Day Years Used Date Smoking Tobacco: Never Assessed Sex and Gender Information Value Date Recorded Sex Assigned at Not on file Legal Sex Male 9:27 AM PROFESSIONAL ADVISOR Gender Identity Not on file Sexual Orientation Not on file documented as of this encounter Plan of Treatment Not on file documented as of this encounter Procedures Procedure Name Priority Date/Time Associated Diagnosis Comments CARDIOLOGY REPORT 03/14/2016 documented in this encounter Results * CARDIOLOGY REPORT (03/14/2016) Anatomical Region Laterality Modality Other Narrative 03/14/2016 Ordered by an unspecified provider. Historical Provider [facility] Final Result documented in this encounter Visit Diagnoses Not on filedocumented in this encounter Care Teams Sharepoint Application Architect Relationship Specialty Start Date End Date Cortes Hanson MD [address] [place], [place] [phone] PCP - General 04/17/16 Cortes Hanson MD [address] [place] [address] PCP - General 08/17/09 04/16/16 documented as of this encounter
--- OUTSIDE RECORDS SUMMARY | 2024-10-08 10:06 | XMS_ITS | Encounter Summary ---
Author Organization [facility] Address [address] [facility] [place] [address] Care Team Providers Care Personnel Associate Name Role Phone Cortes Hanson MD Primary Care Provider + Radha Hollis MD Unavailable Encounter Details Date Type Department Care Team (Late st Contact Info) Description 06/30/2022 [facility] Outpatient Visit [facility] [address] [facility] 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 Health Heart & Vascular Care [address] [facility] [place], [place] [phone] [place] [address] [facility] [address] [place] [address] documented as of this encounter Visit Diagnoses Not on filedocumented in this encounter Care Teams Personnel Associate Relationship Specialty Start Date End Date Cortes Hanson MD [address] [place] [address] PCP - General Family Medicine 11/07/20 [place] [id number] [place] [address] [address] [place] [phone] Rheumatology 05/12/24 documented as of this encounter
--- OUTSIDE RECORDS SUMMARY | 2024-10-08 10:06 | XMS_ITS | Clinical Summary ---
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[place] heart without angina pectoris History of placement of stent for coronary arter y disease 04/17/2016 Overview (06/13/2016): S/P coronary artery stent placement Non morbid obesity due to excess calories 2016 Overview (06/13/2016): Obesity (BMI 30.0-34.9) Surgical History Surgery Date Site/Laterality Comments TONSILLECTOMY Tonsillectomy Medical History Medical History Date Comments Hyperlipidemia Hyperlipidemia Myocardial infarction (HCC) Myoc ardial infarction Hypertension Hypertension Hx Other Medical History of lumb ar laminectomy Hx Other Medical Bladder emptyin g inefficient History of adenoidectomy History of adenoidectomy History of heart artery stent 09/12/2016 Family History Medical History Relation Name Comments Heart attack Brother 2 Myocardial infa rction; Cause of : Myocardial infarction Heart attack Father Myocardial infa rction; Cause of : Myocardial infarction Hypertension Father Hypertension; Stroke Father Stroke; Alzheimer's disease Mother Alzheime r's disease; Other Mother Lack of will to survive; Cause of : Lack of will to survive/Arrythmia; Relation Name Status Comments Brother 1 (Age 53) Brother 2 Father (Age 81) Mother (Age 76) Social History Tobacco Use Types Packs/Day Years [...] on file Legal 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 Male 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 Gender Identity Not on file Sexual Orientation Not on file Obstetrics History Last Filed Vital Signs Vital Sign Reading Time Taken Comments Blood Pressure 106/64 05/12/2022 10:38 AM 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 Pulse 82 05/12/2022 10:38 AM 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 Temperature - - Respiratory Rate 18 09/12/2016 10:57 AM CDT Oxygen Saturation 93% 05/12/2022 10:38 AM 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 Inhaled Oxygen Concentration - - Weight 134.7 kg (297 lb) 05/12/2022 10:38 AM 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 Height 182.9 cm (6') 05/12/2022 10:38 AM 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 Body Mass Index 40.28 05/12/2022 10:38 AM 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 Plan of Treatment Health Maintenance Due Date Last Done Comments Colon Cancer Screening-Colonoscopy 1955 Depression Screening 1955 Fall Risk Assessment 1955 Hepatitis C Screening 1955 Prostate Cancer Screening-PSA 1955 DTaP/Tdap/Td Vaccine (1 - Tdap) 11/05/1966 Hepatitis B Screening 11/05/1973 Pneumococcal vaccine 65+ (1 of 1 - PCV) 11/05/2005 Zoster Vaccine (1 of 2) 11/05/2005 Well Visit 65+ 11/05/2020 Covid-19 Vaccine (2 - season) 2023 Influenza Vaccine (#1) 2024 Abdominal Aortic Aneurysm (AAA) Screen Completed Procedures Procedure Name Priority Date/Time Associated Diagnosis [...] Most Recently Relevant to Health Maintenance Insurance [facility] Address: [address] [address] [facility] MED[facility] Address: [address] [address] [place] [address] Care Teams Power Driven Brush Maker Relationship Specialty Start Date End Date Cortes Hanson MD [address] [place] [address] [facility] - General 04/17/16
--- OUTSIDE RECORDS SUMMARY | 2024-10-08 10:06 | XMS_ITS | Encounter Summary ---
Author Organization [facility] Address [address] [facility] [place] [address] Care Team Providers Care Gunstock Repairer Name Role Phone Cortes Hanson MD Primary Care Provider + Radha Hollis MD Unavailable [phone] Reason for Visit * Reason Onset Date Comments LABS ONLY 09/19/2024 Encounter Details Date Type Department Care Team (Late st Contact Info) Description 09/19/2024 Telephone [facility] - Rheumatology [id number] [place] [address], [address] [place] [address] [place] [address] [facility] [address] [place] [address] LABS ONLY Social History Tobacco Use Types Packs/Day Years [...] PM CDT Legal Sex Male 6:17 AM LIBRARIAN Gender Identity Male 11/07/2020 1:37 PM CDT Sexual Orientation Not on file documented as of this encounter Miscellaneous Notes * Telephone Encounter - Selina Richey RN - 09/22/2024 11:41 AM CDT Pt called office to notify both he and his completed labs today (09/22/2024). Will await results and start PA in new TE for Actemra. * Telephone Encounter - Maria E Mederos RN - 09/19/2024 3:11 PM CDT Patient calling asking about TB GOLD and Hepatitis panel orders, and why they are not resulted. Rn called [place], [place] [facility] and routine labs drawn and resulted - 09/16/2024 . They did NOT draw TB or Hepatitis screen. TB GOLD and Hepatitis Screen ORDERS faxed to [phone], by Selina Rodríguez RN Patient aware to go back yo [facility] and have TB GOLD and Hepatitis Screen drawn. documented in this encounter Plan of Treatment Upcoming Encounters Date Type Department Care Team (Late st Contact Info) Description 01/16/2025 1:15 PM LIBRARIAN Office Visit [facility] - Rheumatology [address] [facility] [address] [place], [place] [phone] [place] [address] [facility] [address] [place] [address] 04/10/2025 11:00 AM LIBRARIAN Office Visit [facility] Heart & Vascular Care [address] [facility], [address] [place] [address] [place] [address] [facility] [address] [place] [address] documented as of this encounter Visit Diagnoses Not on filedocumented in this encounter Care Teams Gunstock Repairer Relationship Specialty Start Date End Date Cortes Hanson MD [address] [facility] [address] [place] [address] PCP - General Family Medicine 11/07/20 [place] [address] [address] Rheumatology 05/12/24 documented as of this encounter
== END 2024-10-08 10:01 | disposition home or self-care (01) ==
PROVIDERS: PCP Family Medicine Adolescent Medicine; Visit Provider Physician Assistant
DX: Z12.2 Encounter for screening for malignant neoplasm of respiratory organs (principal); Z87.891 Personal history of nicotine dependence
CPT/HCPCS: 71271